=== PATIENT | female | born 1975 | race Caucasian/White ===

== ENCOUNTER 2020-03-23 14:44 | Observation (INO) | payer OTHER, SELFPAY ==
[2020-03-23] VITALS (23 sets, daily range): BP systolic 95–153; BP diastolic 53–76; PULSE 60–81; RESP 14–20; TEMP 36.4–36.7; O2SAT 96–100; BMI 25.7; BMI 25.4; BMI 27.1
--- NOTE | 2020-03-23 14:48 | XR_ITS ---
PROCEDURE: XR TIBIA FIBULA LT 2V CLINICAL INDICATION: pain, thrown from a horse Posttraumatic pain COMPARISON: XR ANKLE LT MIN 3V from 03/23/2020 FINDINGS: There is a transverse fracture involving the base of the medial malleolus. There is medial displacement the fracture fragment by 1 cm. The ankle mortise is widened. There is lateral tilt of the talus. There is a displaced fracture involving the distal shaft of the fibula with 9 mm medial displacement of the distal fracture fragment. There is also 10 mm anterior displacement of that fracture fragment.. On the AP view there is also an additional bony fragment projecting between the distal tibia and fibula. The lateral aspect of the distal tibia is likely the bone of origin. CT may confirm. IMPRESSION: Displaced distal fibular shaft and displaced medial malleolar fracture as described above with an additional fracture noted at the distal tibia laterally indicating a [place] type C ankle fracture with widening of the ankle mortise. Please see above for detail. CT may provide further evaluation Dictated by: Raphael Gomez MD 03/23/2020 15:56 Electronically signed by Raphael Gomez MD in [place] 03/23/2020 15:56
--- NOTE | 2020-03-23 14:49 | PC.NURSE ---
mariia notified of xray orders-spoke with Diallo.
--- NOTE | 2020-03-23 15:18 | PC.NURSE ---
Dr Flower speaking with Dr Keller
--- NOTE | 2020-03-23 15:25 | PC.NURSE ---
Consent signed for conscious sedation at this time
--- NOTE | 2020-03-23 15:29 | PC.NURSE ---
Time out performed per this RN and Dr Flower, CC- EMT and Prerna RN at bedside also
--- NOTE | 2020-03-23 15:42 | PC.NURSE ---
pt has appt with Dr Keller on 03/24/20 @ 1 pm.
--- NOTE | 2020-03-23 15:50 | XR_ITS ---
PROCEDURE: XR ANKLE LT 2V CLINICAL INDICATION: post reduction COMPARISON: No exams were available for comparison FINDINGS: This is 1st attempt at post reduction shows improved but mild persistent lateral displacement of the talus by approximately 1 cm and mild lateral displacement of the medial malleolar fragment by 5 mm. The lateral tibial fragment now poses the bone better. There is some persistent medial displacement of the distal fibular fragment by approximately 1 cm. IMPRESSION: Improvement in alignment and displacement of the distal tib fib fracture as described above Dictated by: Raphael Gomez MD 03/23/2020 16:37 Electronically signed by Raphael Gomez MD in [facility] 03/23/2020 16:37
--- NOTE | 2020-03-23 15:53 | XR_ITS ---
PROCEDURE: XR ANKLE LT 2V CLINICAL INDICATION: post reduction COMPARISON: XR ANKLE LT MIN 3V from 03/23/2020 FINDINGS: Second attempt to post reduction shows medial displacement of the distal fibular fracture. There has been improvement in the lateral subluxation of the talus and lateral talar tilt as well as improvement in the lateral subluxation of the medial malleolar fragment. The lateral tibial fragment is once again noted less displaced as well. IMPRESSION: Second attempt post reduction shows improvement in the alignment of the above mention fractures as well as improvement in the lateral subluxation of the talus. There remains some minimal lateral subluxation of the talus by approximately 5 mm with some persistent lateral subluxation of the medial malleolus Dictated by: Raphael Gomez MD 03/23/2020 16:26 Electronically signed by Raphael Gomez MD in [facility] 03/23/2020 16:26
--- NOTE | 2020-03-23 15:56 | PC.NURSE ---
speaking to Krishna regarding reduction and xray results
--- NOTE | 2020-03-23 16:13 | PC.NURSE ---
Pt tp CT
--- NOTE | 2020-03-23 16:16 | CT_ITS ---
PROCEDURE: CT ANKLE LT WO CON CLINICAL HISTORY: Fall from horse Posttraumatic pain, evaluate ankle fracture COMPARISON: No exams were available for comparison TECHNIQUE: Axial images obtained with sagittal and coronal reformats. All CT scans at the facility use one or more dose reduction, viz: automated exposure control, ma/kV adjustment per patient size (including targeted exams where dose is matched to indication, i.e. head), or iterative reconstruction technique. FINDINGS: The foot and ankle is externally rotated. There is a comminuted displaced distal fibular fracture. The fracture is 9 cm proximal to the distal tip of the fibula. There is 1.3 cm medial and 6 mm anterior displacement of the distal fracture fragment with mild dorsal and lateral angulation of the distal fracture fragment. There is a transverse displaced fracture of the medial malleolus which is displaced laterally by 6 mm. The talus is subluxed laterally by approximately 7 mm with widening of the ankle mortise. There is an oblique fracture through the distal and lateral aspect of the tibia extending into the articular surface. This involves the lateral and posterior aspect of the distal tibia. The talar dome has an unremarkable appearance. There is a thin calcific density along the lateral aspect of the talus which could be due to an avulsion injury best seen on series 3, image 70. From the There is extensive soft tissue swelling medially. There is a posterior splint in place. IMPRESSION: Displaced trimalleolar fracture of the left ankle with widened ankle mortise and mild lateral displacement of the talus as described above. Dictated by: Raphael Gomez MD 03/23/2020 16:47 Electronically signed by Raphael Gomez MD in [place] 03/23/2020 16:47
--- NOTE | 2020-03-23 16:27 | PC.NURSE ---
Pt returned from rad.
--- NOTE | 2020-03-23 16:33 | PC.NURSE ---
Dr Keller at bedside
--- NOTE | 2020-03-23 16:40 | PC.NURSE ---
Dr Keller decided to do another reduction at bedside, 100mg propofol given pr Dr Flower see fahad, called rad at this time to performed post reduction film
--- NOTE | 2020-03-23 16:53 | XR_ITS ---
PROCEDURE: XR ANKLE LT 2V CLINICAL INDICATION: post reduction COMPARISON: XR ANKLE LT MIN 3V from 03/23/2020 XR ANKLE LT 2V from 03/23/2020 FINDINGS: A cast have been has been placed. There is improved alignment of the medial malleolar fracture. The ankle mortise no longer appears widened. There is some minimal anterior subluxation of the talus. There remains medial displacement of the distal fibular fracture. IMPRESSION: Improved alignment of the medial malleolar fracture and lateral talus displacement Dictated by: Raphael Gomez MD 03/23/2020 17:15 Electronically signed by Raphael Gomez MD in [facility] 03/23/2020 17:15
--- NOTE | 2020-03-23 17:01 | PC.NURSE ---
Rad at bedside
--- NOTE | 2020-03-23 17:06 | PC.NURSE ---
Given updated at this time
--- NOTE | 2020-03-23 17:06 | PC.NURSE ---
Pt awake and oriented and RASS score of 2, stated her leg is sore but tolerable
--- NOTE | 2020-03-23 17:08 | HMH.EDLOEX ---
ED Disposition Clinical Impression: Ankle fracture, Fibula fracture, Avulsion fracture of ankle, Intractable pain Disposition: Admitted as Observation Condition on Discharge: Good Prescriptions: Hydrocodone/Acetaminophen [Hydrocodone-Acetamin 10-325 mg] 1 each PO Q4H 3 Days #15 tab Prescription Printed Nabumetone 750 mg PO BID 10 Days #20 tab Prescription Printed Referrals: Provider,Referral, [Primary Care Provider] - - Critical Care Critical Care Time: No Attestation: On 03/23/20, the high probability of a clinically significant, sudden or life threatening deterioration of the following system(s) required my full and direct attention, intervention and personal management. The time I documented below is in addition to time spent performing reported procedures but includes the following listed in this critical care notation. Medical Decision Making - Medical Records Medical records reviewed: Yes: I reviewed the patient's medical records. - Vladislav Inquiry Pt receiving controlled substance: No Vital Signs: 03/23/20 14:44 03/23/20 15:07 03/23/20 15:21 Temperature 98 F Temperature Source Oral Pulse Rate [Right] 78 66 75 Respiratory Rate 20 Blood Pressure [Right Arm] 103/64 L 153/66 H 108/72 L Blood Pressure Mean [Right Arm] 77 95 84 Blood Pressure Source [Right Arm] Automatic Cuff Automatic Cuff Blood Pressure Position [Right Arm] Supine Supine 02 Sat by Pulse Oximetry 100 100 100 Oxygen Delivery Method Room Air Room Air Oxygen Flow Rate (LPM) 03/23/20 15:30 03/23/20 15:35 03/23/20 15:40 Temperature 98 F Temperature Source Oral Pulse Rate [Right] 72 70 75 Respiratory Rate 18 18 14 Blood Pressure [Right Arm] 108/60 L 108/76 L 95/56 L Blood Pressure Mean [Right Arm] 76 86 69 Blood Pressure Source [Right Arm] Blood Pressure Position [Right Arm] 02 Sat by Pulse Oximetry 100 100 100 Oxygen Delivery Method Nasal Cannula Nasal Cannula Nasal Cannula Oxygen Flow Rate (LPM) 2 2 2 03/23/20 15:45 03/23/20 15:50 03/23/20 16:00 Temperature Temperature Source Pulse Rate [Right] 71 71 81 Respiratory Rate 14 16 15 Blood Pressure [Right Arm] 97/57 L 101/64 L 109/72 L Blood Pressure Mean [Right Arm] 70 76 84 Blood Pressure Source [Right Arm] Blood Pressure Position [Right Arm] 02 Sat by Pulse Oximetry 100 99 98 Oxygen Delivery Method Nasal Cannula Nasal Cannula Nasal Cannula Oxygen Flow Rate (LPM) 2 2 2 03/23/20 16:05 03/23/20 16:30 03/23/20 16:40 Temperature Temperature Source Pulse Rate [Right] 75 65 66 Respiratory Rate 15 15 Blood Pressure [Right Arm] 106/70 L 97/55 L 121/57 L Blood Pressure Mean [Right Arm] 82 69 78 Blood Pressure Source [Right Arm] Automatic Cuff Blood Pressure Position [Right Arm] Supine 02 Sat by Pulse Oximetry 100 100 100 Oxygen Delivery Method Nasal Cannula Nasal Cannula Oxygen Flow Rate (LPM) 2 2 03/23/20 16:45 03/23/20 16:50 03/23/20 17:00 Temperature Temperature Source Pulse Rate [Right] 72 62 72 Respiratory Rate 18 15 18 Blood Pressure [Right Arm] 121/56 L 106/64 L 110/72 Blood Pressure Mean [Right Arm] 77 78 84 Blood Pressure Source [Right Arm] Blood Pressure Position [Right Arm] 02 Sat by Pulse Oximetry 100 100 100 Oxygen Delivery Method Nasal Cannula Nasal Cannula Oxygen Flow Rate (LPM) 2 03/23/20 17:02 03/23/20 17:05 03/23/20 17:30 Temperature Temperature Source Pulse Rate [Right] 72 77 64 Respiratory Rate 18 Blood Pressure [Right Arm] 110/72 103/67 L 108/62 L Blood Pressure Mean [Right Arm] 84 79 77 Blood Pressure Source [Right Arm] Automatic Cuff Automatic Cuff Blood Pressure Position [Right Arm] Sitting Supine 02 Sat by Pulse Oximetry 100 100 100 Oxygen Delivery Method Nasal Cannula Nasal Cannula Nasal Cannula Oxygen Flow Rate (LPM) 2 2 2 - Lab Data Lab results reviewed: Yes: I reviewed the patient's lab results. Orders (Tests/Meds): ED MEDICATIONS Discontinued M
--- NOTE | 2020-03-23 17:22 | PC.NURSE ---
dr. johnson who is client relations specialist for service paged per brake operator helper per ER request
--- NOTE | 2020-03-23 17:35 | PC.NURSE ---
dr nelson talking to dr johnson
--- NOTE | 2020-03-23 17:35 | PC.NURSE ---
SALLY HASSAN speaking with Dr. Corona who is electronics lead for Dr. Houston joshi MD for this month.
--- NOTE | 2020-03-23 17:38 | PC.NURSE ---
contacted [facility] for bed assignment, waiting trial consultant back
--- NOTE | 2020-03-23 17:40 | PC.NURSE ---
Pt to remain in the ED until covid test comes back before moving her to Med Surg Floor.
--- NOTE | 2020-03-23 18:06 | PC.NURSE ---
LAB AT BEDSIDE
[2020-03-23 18:16] LABS: Adenovirus,PCR Not Detected (NotDetected); Bordetella Pertussis Not Detected (NotDetected); Chlamydophila Pneumoniae, PCR Not Detected (NotDetected); Coronavirus 19, PCR Not Detected (NotDetected); Coronavirus 229E Not Detected (NotDetected); Coronavirus NL63 Not Detected (NotDetected); Coronavirus OC43 Not Detected (NotDetected); Coronovirus HKU1,PCR Not Detected (NotDetected); Human Metapneumovirus Not Detected (NotDetected); Influenza A, PCR Not Detected (NotDetected); Influenza AH1, 2009 Not Detected (NotDetected); Influenza AH1, PCR Not Detected (NotDetected); Influenza AH3,PCR Not Detected (NotDetected); Influenza B, PCR Not Detected (NotDetected); Mycoplasma Pneumoniae, PCR Not Detected (NotDected); Parainfluenza 1, PCR Not Detected (NotDetected); Parainfluenza 2, PCR Not Detected (NotDetected); Parainfluenza 3, PCR Not Detected (NotDetected); Parainfluenza 4, PCR Not Detected (NotDetected); Respiratory Syncytial Virus Not Detected (NotDetected); Rhinovirus/Enterovirus Not Detected (NotDetected)
[2020-03-23 18:22] LABS: Basophils % 0.2 % (0.1-2.0); Eosinophils % 0.2 % (0.1-12.0); Hematocrit 35.1 % (37.0-47.0); Hemoglobin 11.7 g/dL (12.2-16.2); Lymphocytes # 1.6 K/mm3 (0.7-4.5); Lymphocytes % 11.6 % (10-50); Mean Corpuscular HGB Conc 33.4 g/dL (31.8-35.4); Mean Corpuscular Hemoglobin 30.4 pg (27.0-31.2); Mean Corpuscular Volume 91.2 fl (81-99); Mean Platelet Volume 7.7 fl (7.4-10.4); Monocytes # 0.7 K/mm3 (0.1-1.0); Monocytes % 4.8 % (1.7-9.3); Neutrophils # 11.8 K/mm3 (1.8-7.8); Neutrophils % 83.2 % (37.0-80.0); Platelet Count 302 K/mm3 (142-424); Red Blood Count 3.84 M/mm3 (4.20-5.40); Red Cell Distribution Width 13.1 % (11.5-17.5); White Blood Count 14.1 K/mm3 (4.8-10.8)
[2020-03-23 18:28] LABS: Alanine Aminotransferase 10 U/L (12-78); Albumin/Globulin Ratio 1.5 (1.1-1.8); Alkaline Phosphatase 47 U/L (38-126); Anion Gap 8.7 mEq/L (5-15); Aspartate Amino Transferase 23 U/L (14-36); Bilirubin,Total 0.2 mg/dl (0.2-1.3); Blood Urea Nitrogen 17 mg/dl (7-17); Calcium 8.4 mg/dl (8.4-10.2); Carbon Dioxide 24 mmol/L (22.0-30.0); Chloride 106 mmol/L (98-107); Creatinine Clearance Estimated 105 mL/min (50-200); Estimated Glomerular Filt Rate 90 ml/min (>60); GFR (African American) 109 ML/MIN (>60); Globulin 2.6 g/dL (1.3-3.2); Glucose 109 mg/dl (74-100); Potassium 3.7 mmoL/L (3.5-5.1); Sodium 135 mmol/L (136-145); Total Protein,Serum 6.6 g/dl (6.3-8.2)
--- NOTE | 2020-03-23 18:44 | PC.NURSE ---
Spoke with Dr. Shukla and she wants to add patient on for surgery at 0730 03/24. Wang Arevalo RN notified Yadira Guevara, mental health program manager. SUMIT Lynn notified Jocelyne Mark to informed her that supplies would need to be sterilized prior to surgery and that Rep. would be bringing them in tonight. 1851: Wang Arevalo RN spoke with Keila Khan RN to notify her of surgery in and Patricia Adams, it support technician.
--- NOTE | 2020-03-23 18:53 | PC.NURSE ---
Pt awaiting on COVID19 test before being admitted to 2nd floor
--- NOTE | 2020-03-23 19:00 | PC.NURSE ---
Spoke with Sotero Escobedo CRNA and notified him of surgery in AM.
--- NOTE | 2020-03-23 19:08 | PC.NURSE ---
report given to len
--- NOTE | 2020-03-23 21:01 | PC.NURSE ---
PT ARRIVED TO THE FLOOR VIA STRETCHER FROM ED @ 2100.
--- NOTE | 2020-03-23 21:04 | HMH.ORTHOCON ---
*Admission Date: 03/23/20 *Reason for consult:: Left trimalleolar ankle fracture dislocation *History of present illness: Mrs. Hubbard is a 45-year-old female who presented to the ED today 03/23/2020 after sustaining a fall off of a horse around 2 PM. Patient was seen and evaluated by ED doctor and orthopedic surgeon Dr. Keller was consulted for closed reduction of left trimalleolar ankle fracture dislocation. Dr. Corona admitted the patient for pain control and I was consulted for surgical evaluation. Of note: Patient's was positive for COVID and has been self isolating at their home. Patient has little to no help at home hence the admission for stabilization prior to discharge home. At the ER bedside patient reports pain controlled with medication. She has nausea and is actively vomiting secondary to sedation medication. Review of Systems - Review of Systems Review of systems:: pertinent systems reviewed and negative unless documented below - Constitutional Reports fatigue - Eyes Denies blind spots, Denies blurry vision - ENT Denies abnormal hearing - *Cardiovascular Denies chest pain, Denies shortness of breath - *Respiratory Denies chest congestion, Denies shortness of breath - *Gastrointestinal Reports nausea, Reports vomiting - *Genitourinary Denies abnormal periods - *Musculoskeletal Reports deformity, Reports limited joint movement, Reports radiating pain into limb - *Neurologic Denies abnormal hearing - Psychiatric Denies abnormal sleep pattern - Endocrine Reports cold intolerance - Hematologic/Lymphatic Reports easy bruising - Allergic/Immunologic Reports GI upset with certain foods [facility] [place] History I have reviewed the patient's past medical history: Yes Medical History: Denies:: Diabetes Mellitus Type 2, Hypertension *Have you ever received a pneumonia vaccine?: No *Have you received a flu vaccine this season?: Yes Other Surgeries: Yes: Other (Cystoscopy) Amputation: No - *Social History Smoking Status: Never smoker Alcohol Intake: never *Occupational Status:: employed *Travel in the last 8 weeks: None Family Hx:: Hypertension Meds Home Medications Medication Instructions Recorded Confirmed Type Fluticasone Furoate [Flonase 1 spray NS NEEDED PRN 03/24/20 03/24/20 History Sensimist] Ibuprofen [Ibuprofen 800mg 800 mg PO Q8HP PRN 03/24/20 03/24/20 History Tablet] Allergies Allergy/AdvReac Type Severity Reaction Status Date / Time hydromorphone [From Abdoulid] Allergy Nausea Verified 03/24/20 07:15 Exam Vital signs and Labs for Last 24 Hours: Temp Pulse Resp BP Pulse Ox 98.0 F 64 14 105/64 L 96 03/23/20 20:55 03/23/20 20:55 03/23/20 20:55 03/23/20 20:55 03/23/20 18:41 Laboratory Results - last 24 hr 03/23/20 18:10: Chlamy pneumoniae PCR Not detected, Adenovirus (PCR) Not detected, B. pertussis DNA (PCR) Not detected, Coronavirus OC43 (PCR) Not detected, Coronavirus HKU1 (PCR) Not detected, Coronavirus 229E (PCR) Not detected, COVID-19 PCR Not detected, Coronavirus NL63 (PCR) Not detected, Human Metapneumovir PCR Not detected, Influenza A (H1) PCR Not detected, Influ A (H1N1/09) PCR Not detected, Influenza A (H3) PCR Not detected, Influenza Type A (PCR) Not detected, Influenza Type B (PCR) Not detected, M. pneumoniae (PCR) Not detected, Parainfluenza 1 (PCR) Not detected, Parainfluenza 2 (PCR) Not detected, Parainfluenza 3 (PCR) Not detected, Parainfluenza 4 (PCR) Not detected, RSV (PCR) Not detected, Entero/Rhino (PCR) Not detected 03/23/20 18:10: WBC 14.1 H, RBC 3.84 L, Hgb 11.7 L, Hct 35.1 L, MCV 91.2, MCH 30.4, MCHC 33.4, RDW 13.1, Plt Count 302, MPV 7.7, Neut % (Auto) 83.2 H, Lymph % (Auto) 11.6, [place] % (Auto) 4.8, Eos % (Auto) 0.2, Baso % (Auto) 0.2, Neut # (Auto) 11.8 H, Lymph # (Auto) 1.6, [place] # (Auto) 0.7, Eos # (Auto) 0.0, Baso # (Auto) 0.0 03/23/20 18:10: Sodium 135 L, Potassium 3.7, Chloride 106, Carbon Dioxide 24, Anion Gap
[2020-03-24] VITALS (27 sets, daily range): BP systolic 87–124; BP diastolic 25–85; PULSE 60–106; RESP 16–20; TEMP 36.5–43; O2SAT 92–100; BMI 27.1
[2020-03-24 00:06] LABS: Microscopic, Urine URINE MICROSCOPIC (MICROSCOPIC)
[2020-03-24 00:27] LABS: Appearance,Urine CLEAR (Clear); Bilirubin,Urine Negative (Negative); Blood, Urine Negative (Negative); Color,Urine YELLOW (Yellow); Glucose,Urine (UA) Negative (Negative); Ketones,Urine 2+ (Negative); Leukocyte Esterase,Urine Negative (Negative); Nitrate,Urine Negative (Negative); Protein,Urine Negative (Negative); Specific Gravity, Urine 1.025 (1.005-1.030); Urobilinogen,Urine 0.2 EU/dl (0.2)
[2020-03-24 00:33] LABS: Bacteria,Urine 1+ /lpf; Mucus,Urine 1+ /lpf
--- NOTE | 2020-03-24 05:51 | ECG_ITS ---
APPROVED REPORT Exam: Resting ECG HR:63 bpm ECG Measurements Heart Rate 63 AXES OK 144 P 39 QRSd 112 QRS 62 QT 396 T 43 QTc 405 <Conclusion> Normal sinus rhythm Incomplete right bundle branch block Borderline ECG Electronically signed by : Karl Garcia, 03/24/2020 08:50:19
--- NOTE | 2020-03-24 06:06 | XR_ITS ---
PROCEDURE: XR CHEST PORTABLE CLINICAL HISTORY: pre-op Exposure to COVID 19 COMPARISON: No exams were available for comparison FINDINGS: The cardiomediastinal silhouette and pulmonary vascularity are within normal limits. The lungs are clear without infiltrates, suspicious nodules, or pleural effusions. No acute bony abnormalities. IMPRESSION: No acute findings. Dictated by: Raphael Gomez MD 03/24/2020 06:28 Electronically signed by Raphael Gomez MD in [place] 03/24/2020 06:28
--- NOTE | 2020-03-24 07:12 | P.CONPHA_ITS ---
[facility] Pharmacy VTE Monitoring - Patient Demographics Admission date: 03/23/20 Report Date: 03/24/20 Time: 07:12 Allergies/Adverse Reactions: Patient Allergies No Known Allergies Allergy (Verified 03/23/20 14:48) Height: 1.63 m Weight: 72.2 kg Patient Problems: Current Active Problems Ankle fracture (Acute) Fibula fracture (Acute) Avulsion fracture of ankle (Acute) Intractable pain (Acute) Trimalleolar fracture of left ankle (Acute) Soft tissue injury of left ankle (Acute) Left ankle pain (Acute) - VTE Risk Labs: VTE Related Lab Results Hgb 11.7 g/dL (12.2-16.2) L 03/23/20 18:10 Hct 35.1 % (37.0-47.0) L 03/23/20 18:10 Plt Count 302 K/mm3 (142-424) 03/23/20 18:10 BUN 17 mg/dl (7-17) 03/23/20 18:10 Creatinine 0.70 mg/dl (0.52-1.04) 03/23/20 18:10 Estimated Creat Clear 105 mL/min (50-200) 03/23/20 18:10 Was VTE Risk Assessment Performed: Yes VTE Score: 1 VTE Risk Level: Very Low Risk Clinical Trial Participant: No - Prophylaxis VTE Prophylaxis Ordered?: Yes Types of VTE Prophylaxis: TEDS Knee High
--- NOTE | 2020-03-24 07:15 | HMH.ANESCL ---
[facility] Anesthesia Checklist - Patient Identification Patient Identification: Arm Band, Verbal (Name & ) - Structural Data Admitted From: Home Planned Operative Procedure/s: orif ankle Consent for Planned Operative Procedure(s) Verified: Yes Verified Documents: History and Physical - NPO Status Verified Time NPO: 00:00 - Additional verifications Patient : No Anesthesia Reactions: No Hx Blood Transfusions: No Blood Transfusion Reaction: No Cephalosporin Allergy: No Previous Colonoscopy: No - Cardiovascular Assessment Heart Sounds: S1 & S2 Pulse Strength: Baseline Pulse Rhythm: Regular Peripheral Edema: Yes - Airway Assessment C-Spine Mobility Assessed: No TMJ Mobility Assessed: No Dentition: Good Dentition - Neurological Assessment Level of Consciousness: Awake, Alert, Appropriate Hx Seizures: No Numbness or tingling in extremities: No - Anesthesia Plan Anesthesia Risk discussed: Yes Anesthesia Plan: Verified ASA Class: I Anesthesia Type: General [facility] History I have reviewed the patient's past medical history: Yes Medical History: Denies:: Cancer, Diabetes Mellitus Type 1, Diabetes Mellitus Type 2, Internal Pacemaker, MRSA *Have you ever received a pneumonia vaccine?: No (pt unable to respond) *Have you received a flu vaccine this season?: Yes (pt unable to respond) Anesthesia experience/problems:: none Other Surgeries: No: Pacemaker Amputation: No - *Social History Educational Level: Completed Graduate School Alcohol Intake: never Substance Use Type: other *Occupational Status:: employed Housing: house Household Members: spouse, children *Travel in the last 8 weeks: None Family Hx:: Diabetes, Heart Attack, Hypertension
--- NOTE | 2020-03-24 07:16 | HMH.OPNOTE ---
Date of procedure: 03/24/20 Pre-op Diagnosis:: 1. Left trimalleolar ankle fracture dislocation 2. Left ankle edema 3. Left ankle pain 4. Left ankle injury, fall from horse Post-op Diagnosis:: Same Procedure performed:: 1. Left open reduction internal fixation trimalleolar ankle fracture (ORIF distal fibula, ORIF medial malleolus) 2. Left ORIF syndesmosis 3. Left ankle synovectomy 4. Left application of amniotic graft 5. Left application of posterior splint Surgeon:: Negra Shukla DPM DRIVER RECRUITER:: Prashanth Raman Anesthesia: GETA, regional (left popliteal, saph nerve block) Estimated blood loss (mL): 20 Clinical Note:: Left Trimalleolar Ankle Fracture Pre-op: X-rays evaluated by myself. 3 views of left ankle as well as postreduction films and CT left ankle evaluated by myself. Report noted. CT Findings: The foot and ankle is externally rotated. There is comminuted displaced distal fibular fracture. The fracture is 9 cm proximal to the tip of the distal fibula. There is 1.3 cm medial and 6 mm anterior displacement of the distal fibular fracture fragment with mild dorsal and lateral angulation of the distal fibular fracture fragment. There is a transverse displaced fracture of the medial malleolus which is displaced laterally by 6 mm. The talus is subluxed laterally by approximately 7 mm with widening of the ankle mortise. There is an oblique fracture through the distal and lateral aspect of the tibia extending into the articular surface. This involves the lateral and posterior aspect of the distal tibia. The talar dome has an unremarkable appearance. There is a thin calcific density along the lateral aspect of the talus which could be due to an avulsion injury best seen on series 3, image 70. There is extensive soft tissue swelling medially. There is a posterior splint in place. Impression: Displaced trimalleolar fracture of the left ankle with widened ankle mortise. X-rays ad CT reviewed and discussed with the patient and patient's sister Susi. Images show fracture dislocation with fracture of the medial malleolus as well as distal fibula with significant gapping and comminution. Lateral dislocation of the talus. Conservative treatment discussed but not recommended. DOI: 03/23/2020. We discussed surgery due to the highly unstable nature of the fracture. I explained if the soft tissue has fracture blisters or swelling, the left lower extremity will need to be stabilized with an external fixation device. If the swelling is minimal, can proceed with ORIF tomorrow morning. All risks and benefits were discussed including but not limited to: damage to blood vessels and nerves, bleeding, infection, wound complications, delayed, mal or non-union of bone, post-traumatic arthritis, need for further surgery, need for removal of implant, prolonged swelling of the extremity, prolonged pain, CRPS/RSD, DVT, and anesthetic complications. No guarantees were given. All questions fully answered. The patient and patient's sister verbalized understanding and agreed to proceed with surgery. Consent was obtained. Necessary labs and pre-op testing ordered: CBC, BMP, EKG, CXR. Admission per Dr. Corona. WBC elevated, Dr. Corona aware. Med clearance per Dr. Corona. Of note: COVID 19 test negative. Operative findings:: Left ankle with obvious deformity noted upon removal of splint. 2 small blisters inferior to the medial malleolus incision less than dime sized around. Some ecchymosis and mild edema. Comminuted left distal fibula fracture with 2 main fracture fragments and several small pieces in between the 2 main fracture fragments. Medial malleolus fracture with 2 small fracture fragments that were removed. The ankle joint was visualized and there was hematoma at the medial malleolus as well as in the ankle joint. Medial talar dome had a scuff in the cartilage. Synovitis to ankle could be from trauma or due to patient's activity and history of running. Operative note::
[2020-03-24 07:37] LABS: Urine Pregnancy, HCG Qual. Negative (Negative)
--- NOTE | 2020-03-24 07:45 | PC.NURSE ---
PT DID WELL OVERNIGHT. RATES PAIN OF LEFT ANKLE A 3/10 T/O SHIFT ON PAIN SCALE, WHICH WAS NOTED A TOLERABLE LEVEL FOR HER. PT NOTED VERY NAUSEOUS FROM RECEIVING DILAUDID X2 IN THE ER PRIOR TO ADMISSION. PT CONTINUED WITH NAUSEA AND VOMITING UPON ARRIVAL TO UNIT. ADMINISTERED PHENERGAN PER MAR, PT STATES NO REMAINING SYMPTOMS. RESTED WELL THE REMAINDER OF THE SHIFT WITH NO NEW COMPLAINTS. LLE ELEVATED WITH POLAR PACK TO KNEE. TEDS ON RLE. VSS. WEANED PT TO RA, O2 SATS WNL. REMAINS SAFE. CALL LIGHT WITHIN REACH. WILL CONTINUE TO MONITOR.
--- NOTE | 2020-03-24 07:54 | SUR.PREOP ---
Terrell from pharmacy called to update that Pt has had Ancef yesterday evening and 0430 this AM. Spoke with Dr. Shukla, cancel pre-op Ancef order.
--- NOTE | 2020-03-24 10:51 | XR_ITS ---
PROCEDURE: XR ANKLE LT 2V CLINICAL INDICATION: ORIF LT ANKLE COMPARISON: XR ANKLE LT 2V from 03/23/2020 FINDINGS: Fluoroscopic spot films in surgery show placement of a long metallic plate transfixing the transverse fibular flexure in anatomic alignment. The plate is fixated by multiple threaded screws. A 2nd shorter metallic plate is seen along the medial aspect of the distal tibia fixating an reducing the medial malleolar fracture in anatomic alignment. And oblique threaded screw is seen within the medial malleolus and distal tibia as well. The overall ankle mortise appears normal. IMPRESSION: Satisfactory ORIF distal fibular and medial malleolar fracture Dictated by: Dr. Syd Tan MD 03/24/2020 11:[address] Syd Tan MD in [place] 03/24/2020 11:29
--- NOTE | 2020-03-24 10:55 | SUR.OPER ---
1036-family updated at this time
--- NOTE | 2020-03-24 11:17 | XR_ITS ---
PROCEDURE: XR ANKLE LT MIN 3V CLINICAL INDICATION: s/p ORIF left ankle COMPARISON: Fluoroscopic spot films in surgery same date and plain films left ankle 03/24/2020 FINDINGS: AP lateral and oblique films were obtained post casting. The long metallic fibular plate is again noted transfixing the fibular fracture in anatomic alignment. The metallic plate is again seen no medial border of the distal tibia along with a parallel 3 threaded screw transfixing the medial malleolar fracture in anatomic alignment. The ankle mortise appears grossly normal. IMPRESSION: Satisfactory ORIF distal fibular and medial malleolar fracture post casting Dictated by: Dr. Syd Tan MD 03/24/2020 12:[address] Syd Tan MD in [place] 03/24/2020 12:48
--- NOTE | 2020-03-24 11:44 | P.PN_ITS ---
[facility] Anesthesia Record Part I Intake, IV Amount: 1,300 Estimated blood loss (mL): 0 Urine output (mL): 1,100 Blood Products used (#): none Blood Pressure: 113/60 SaO2: 92 Pulse Rate: 80 Respiratory Rate: 18 Temperature: 98.4 F Patient is:: Drowsy, Nasal O2, Stable Stable to PACU at:: 11:41
--- NOTE | 2020-03-24 12:57 | HMH.ANESII ---
[facility] Anesthesia Record Part II Discharge Time: 12:11 Destination: Medical Surgical Department PACU nurse assessment reviewed?: Yes Patient Condition:: Good Anesthesia Complications:: None Swallowing reflex intact?: Yes Cyanosis?: No Blood Pressure: 124/67 Pulse Rate: 76 Temperature: 98.1 F Mental Status: Alert & Oriented Pain level:: 4 Nausea and/or vomitting:: None Intake, IV Amount: 20
--- NOTE | 2020-03-24 13:01 | PC.NURSE ---
1209-pt reports pain still remains about 4-5/10 on numeric pain scale to behind left knee, pt was medicated per MAR with Toradol 30mg IM. Offered pt additional pain medication as ordered per DIRECTOR OF RESEARCH AND DEVELOPMENT, pt refused pain medication at this time r/t pain meds causing severe nausea. Offered pt Phenergan as ordered per DIRECTOR OF RESEARCH AND DEVELOPMENT/MAR to prevent nausea with pain medication. Pt reported she did not want either at this time and would take PO pain medication as ordered per MAR once she returns to her room on med/surg. Pt reported pain was tolerable and not worsening. 1211-attempted to call report at this time, awaiting 2nd floor RN to call back for report. 1216-detailed report given to SUMIT Mcduffie on 2nd floor 1221-pt transported to 2nd floor room 203 via hospital bed with mita rails up per SUMIT Omer and SUMIT Baker and left in care of SUMIT Mcduffie with bed locked in lowest position, vss, family at bedside, pt stable
--- NOTE | 2020-03-24 13:05 | PC.NURSE ---
late entry: 1149-radiology at bedside
[2020-03-24 13:49] LABS: Microscopic,Cath URINE MICROSCOPIC (MICROSCOPIC)
[2020-03-24 14:12] LABS: Appearance,Urine/Cath CLEAR (Clear); Bilirubin,Cath Negative (Negative); Blood, Urine/Cath Negative (Negative); Color,Urine/Cath YELLOW (Yellow); Glucose,Urine/Cath (UA) Negative (Negative); Ketones,Urine/Cath Negative (Negative); Leukocyte Esterase,Cath Negative (Negative); Nitrate,Cath Negative (Negative); PH,Urine/Cath 6.5 (5.0-8.5); Protein,Urine/Cath Negative (Negative); Urobilinogen,Cath 0.2 EU/dl (0.2)
[2020-03-24 14:55] LABS: Squamous Epithelial Ur./Cath Occasional #/hpf (0-5); WBC,Urine/Cath Occasional #/hpf (0-3)
--- NOTE | 2020-03-24 15:03 | HMH.HP ---
*Admission Date: 03/23/20 <Adwoa Ward 03/24/20 16:03> *Chief complaint: left ankle injury when falling off a horse <Adwoa Ward 03/24/20 16:03> *History of present illness: Mrs. Hubbard is a 45-year-old healthy female who presented to the ED 03/23/2020 after sustaining a fall off of a bucking horse around 2 PM. She states she landed on her feet and immediately knew that she had an injury. She had no loss of consciousness. She states she had to crawl a long distance for help. Patient was seen and evaluated by ED doctor. Orthopedic surgeon, Dr. Keller, was consulted for closed reduction of left trimalleolar ankle fracture dislocation. Dr. Corona admitted the patient for pain control. Dr. Shukla was consulted for surgical evaluation. Of note: Patient's was positive for COVID and has been self isolating at their home. Patient has little to no help at home. Hence the admission for stabilization prior to discharge home. At the ER bedside patient reported pain control with medication. She had nausea and actively vomited secondary to sedation medication. At the time of this assessment patient has already had ORIF of the distal fibula; ORIF of medial malleolus, left ORIF syndesmosis, left ankle synovectomy, application of amniotic graft and left application of posterior splint by Dr. Shukla. Patient at this time is comfortable and visiting with a friend. <Adwoa Ward 03/24/20 16:03> [facility] [place] History Medical History: Reports:: Gastroesophageal Reflux Disease(GERD) (H pylorie years ago) Denies:: Cancer, Diabetes Mellitus Type 1, Diabetes Mellitus Type 2, Hypertension, Internal Pacemaker, Lung Disease, Migraine, MRSA, Seizures <Adwoa Ward 03/24/20 16:03> *Have you ever received a pneumonia vaccine?: No (pt unable to respond) <Adwoa Ward 03/24/20 16:03> *Have you received a flu vaccine this season?: Yes (pt unable to respond) <Adwoa Ward 03/24/20 16:03> Other Medical History: Reports: Anemia. Denies: Blood Transfusion Reaction, Hypothyroidism <Adwoa Ward 03/24/20 16:03> Anesthesia experience/problems:: none <Adwoa Ward 03/24/20 16:03> Other Surgeries: Yes: Other (Cystoscopy; urethral dilatation about every 5 to 6 years). No: Pacemaker <Danya Wardhy 03/24/20 16:03> Amputation: No <Adwoa Ward 03/24/20 16:03> - *Social History Educational Level: Completed Graduate School <Adwoa Ward 03/24/20 16:03> Smoking Status: Never smoker <Adwoa Ward 03/24/20 16:03> Alcohol Intake: never <Adwoa Ward 03/24/20 16:03> Substance Use Type: other [facility] 03/24/20 16:03> *Occupational Status:: employed <Adwoa Ward 03/24/20 16:03> Housing: house <Danya Wardhy 03/24/20 16:03> Household Members: spouse, children <Danya Wardhy 03/24/20 16:03> *Travel in the last 8 weeks: None <[facility] 03/24/20 16:03> Family Hx:: Cancer, Coronary Artery Disease, Heart Attack, Hypertension <Danya Wardhy 03/24/20 16:03> Comment: Sister had glioblastoma; mother and father both had skin melanomas <Danya Wardhy 03/24/20 16:03> Comment: Has IUD <Danya Wardhy 03/24/20 16:03> Review of Systems - Constitutional Denies chills, Denies fever(s), Denies lack of energy <Adwoa Wrad 03/24/20 16:03> - Eyes Denies change in vision <[facility] 03/24/20 16:03> - ENT Reports post nasal drip, Reports sore throat (In the a.m.), Denies dizziness, Denies ear pain, Denies nose pain <Danya Wardhy 03/24/20 16:03> - *Cardiovascular Denies chest pain, Denies shortness of breath, Denies irregular heart rhythm <Danya Wardhy 03/24/20 16:03> - *Respiratory Denies chest congestion, Denies cough, Denies shortness of breath, Denies coughing up blood <Adwoa Ward 03/24/20 16:03> - *Gastrointestinal Reports heartburn (Occasional), Denies abdominal pain, Denies coffee ground vomit, Denies constipation <Adwoa Ward 03/24/20 16:03> - *Genitourinary Repo
--- NOTE | 2020-03-24 19:13 | PC.NURSE ---
report given to len
--- NOTE | 2020-03-24 20:08 | PC.NURSE ---
Pt has been alert and oriented x 4 and able to make needs known. Has done well post op. VSS. Polor pack in place to L knee, scud in place to R leg. Pain has been minimal, have medicated x 2 with prn po med. Dsg cdi to Left leg. CB in reach. NAD, continues to be NSR and on RA. Have given report to oncoming RN.
[2020-03-25] VITALS: PULSE 70
[2020-03-25 00:31] VITALS: BP 90/74; PULSE 86; RESP 19; TEMP 36.8; O2SAT 94
--- NOTE | 2020-03-25 03:46 | PC.NURSE ---
PT RESTED WELL WITH EYES CLOSED T/O SHIFT. C/O MILD PAIN T/O SHIFT, RATING PAIN 4/10 ON PAIN SCALE. ADMINISTERED NORCO X2 PER MAR PER PT REQUEST. UPON REASSESSMENT PT NOTED RESTING WITH EYES CLOSED. NO FURTHER C/O PAIN THUS FAR. LLE REMAINS ELEVATED ON PILLOWS WHILE IN BED. POLAR PACK REMAINS BEHIND LEFT KNEE. PT ABLE TO MOVE DIGITS APPROPRIATELY ON LLE. PT TOLERATED NWB DURING TRANSFER TO SHOWER CHAIR AND DURING SHOWER THIS SHIFT. TOLERATED RA WELL WITH NO C/O SOA. BILATERAL LUNG NOTED CLEAR T/O UPON AUSCULTATION. PT DEMONSTRATED APPROPRIATE USE OF INCENTIVE SPIROMETER THIS SHIFT. ENCOURAGED USE OF IS WHILE AWAKE. SCUDS REMAINS ON RLE. NSR ON PERSONAL TRAINER. VSS. PT STATES HER BASELINE B/P IS USUALLY 80/65 RANGE. MAP REMAINS >65 T/O SHIFT. REMAINS SAFE. FC SITE REMAINS C/D/I. URINE NOTED CLEAR AND BRIGHT YELLOW. ADEQUATE URINE OUTPUT NOTED. CALL LIGHT WITHIN REACH. WILL CONTINUE TO MONITOR.
[2020-03-25 03:51] VITALS: BP 100/70; PULSE 70; RESP 19; TEMP 36.8; O2SAT 97
[2020-03-25 04:00] VITALS: PULSE 60
[2020-03-25 05:00] VITALS: BMI 27.3
[2020-03-25 07:06] LABS: Basophils % 0.3 % (0.1-2.0); Eosinophils # 0.1 K/mm3 (0.0-0.4); Eosinophils % 0.6 % (0.1-12.0); Hematocrit 31.8 % (37.0-47.0); Hemoglobin 9.8 g/dL (12.2-16.2); Lymphocytes # 2.3 K/mm3 (0.7-4.5); Lymphocytes % 24.5 % (10-50); Mean Corpuscular HGB Conc 30.9 g/dL (31.8-35.4); Mean Corpuscular Hemoglobin 30.2 pg (27.0-31.2); Mean Corpuscular Volume 97.9 fl (81-99); Monocytes # 0.7 K/mm3 (0.1-1.0); Monocytes % 7.1 % (1.7-9.3); Neutrophils # 6.3 K/mm3 (1.8-7.8); Neutrophils % 67.5 % (37.0-80.0); Platelet Count 221 K/mm3 (142-424); Red Blood Count 3.25 M/mm3 (4.20-5.40); Red Cell Distribution Width 13.4 % (11.5-17.5); White Blood Count 9.4 K/mm3 (4.8-10.8)
[2020-03-25 07:14] LABS: Chloride 108 mmol/L (98-107); Potassium 3.3 mmoL/L (3.5-5.1); Sodium 137 mmol/L (136-145)
[2020-03-25 07:17] LABS: Alanine Aminotransferase 11 U/L (12-78); Albumin Level 2.9 g/dl (3.5-5.0); Albumin/Globulin Ratio 1.3 (1.1-1.8); Alkaline Phosphatase 35 U/L (38-126); Anion Gap 6.3 mEq/L (5-15); Aspartate Amino Transferase 33 U/L (14-36); Bilirubin,Total 0.4 mg/dl (0.2-1.3); Blood Urea Nitrogen 8 mg/dl (7-17); Carbon Dioxide 26 mmol/L (22.0-30.0); Creatinine Clearance Estimated 132 mL/min (50-200); Estimated Glomerular Filt Rate 107 ml/min (>60); GFR (African American) 130 ML/MIN (>60); Globulin 2.3 g/dL (1.3-3.2); Glucose 99 mg/dl (74-100); Total Protein,Serum 5.2 g/dl (6.3-8.2)
[2020-03-25 07:28] LABS: Calcium 7.5 mg/dl (8.4-10.2)
[2020-03-25 08:00] VITALS: PULSE 70
[2020-03-25 08:01] VITALS: BP 103/56; PULSE 69; RESP 16; TEMP 36.9; O2SAT 98
--- NOTE | 2020-03-25 08:14 | HMH.ORTHPN ---
Subjective Date: 03/25/20 Time: 07:55 Principal diagnosis: Left trimalleolar emil fracture Interval history: Patient resting comfortably at bedside. Denies N/V, F/C, SOB/CP. She denies issue overnight. The block is starting to wear off. She was given Rx Nabumetone and Dunbar 10/325 x 3days from ER. She had some PT yesterday and wants crutches, she plans to rent a rolling knee scooter (RKS). PN: Obj Ex Vital signs: Temp Pulse Resp BP Pulse Ox 98.5 F 69 16 103/56 L 98 03/25/20 08:01 03/25/20 08:01 03/25/20 08:01 03/25/20 08:01 03/25/20 08:01 - Constitutional no acute distress - Routine HEENT Exam Head: Present: normocephalic - Routine Neck Exam Present: full ROM - Routine Chest/Breast/Axilla Exam Chest wall: Absent: tenderness - Routine Respiratory Exam Present: CTA bilaterally - Routine Cardiovascular Exam Present: RRR - Routine Abdominal Exam Present: soft - Routine Extremities Exam Present: pulses intact, normal capillary refill. Absent: calf tenderness - Detailed Lower Extremity Exam Comments: Left lower extremity elevated on 2 pillows. Splint clean dry and intact no strike-through. Capillary fill time within normal limits. Light touch sensation and motor function intact but decreased secondary to nerve block. Polar pack to the left posterior knee. No calf or thigh pain noted bilaterally. - Routine Back/Spine/Pelvis Exam Back/Spine: Present: full ROM - Routine Skin Exam Present: intact - Routine Neurological Exam Present: alert, oriented X3, CN II-XII intact - Routine Psychiatric Exam Present: normal affect - Urinary Catheter Management Reagan Cath placed during this visit: yes, but has since been removed by the nurse Urethral indwelling: Yes Reason for continuing: Surgical procedure (remove) Insertion date: 03/24/20 Removal date: 03/25/20 Progress Note: A&P (1) Trimalleolar fracture of left ankle Status: Acute Current Visit: Yes (2) Soft tissue injury of left ankle Status: Acute Current Visit: Yes (3) Left ankle pain Status: Acute Current Visit: Yes (4) Left ankle injury Status: Acute Current Visit: Yes (5) Intractable pain Status: Acute Current Visit: Yes Assessment and Plan for All Diagnoses:: S/p left open reduction internal fixation trimalleolar ankle fracture (ORIF distal fibula, ORIF medial malleolus, ORIF syndesmosis), ankle synovectomy Sx: 03/24/20, POD #1 Overall patient has done well overnight. She has no complaints this morning. Still some numbness secondary to block. I educated the patient on the perioperative plan. Discussed the importance of strict nonweightbearing. She did well with physical therapy yesterday and will have 1 more session prior to discharge today to work on nonweightbearing gait training and stairs. Patient will follow-up with me in 1 week for postop check. Discharge/Plan: Maintain dressing clean dry and intact to the left lower extremity Nonweightbearing to LLE: crutches and recommend RKS Cryo/Cuff behind the left knee Elevate on 2 pillows SCD and DVT prophylaxis: okay to take aspirin 81mg daily (lower risk for DVT) Consult case management: Patient will need crutches e-Rx Dunbar 7.5/325 Zofran, Motrin [facility] Postop foot and ankle surgery packet given to the patient Discuss plan of care with Dr. Corona: ok to discharge from Foot and Ankle stand-point Follow up in one week
--- NOTE | 2020-03-25 08:38 | HMH.ACPN2 ---
<Yocasta Phipps - Last Filed: 03/25/20 08:38> Internal Medicine - PN: Subj *Date: 03/25/20 *Time: 08:38 Interval history: Patient states she is feeling well today. She does have minimal pain in her left leg and her toes are still slightly numb. She has been up to the bathroom and has done well. Dr. Shukla has seen the patient today and PT will see her later on this morning. She should be able to go home this afternoon. Exam Vital signs and Labs for Last 24 Hours: Temp Pulse Resp BP Pulse Ox 98.5 F 69 16 103/56 L 98 03/25/20 08:01 03/25/20 08:01 03/25/20 08:01 03/25/20 08:01 03/25/20 08:01 Laboratory Results - last 24 hr 03/24/20 08:10: Urine Color Yellow, Urine Appearance Clear, Urine pH 6.5, Ur Specific [place] 1.010, Urine Protein Negative, Urine Glucose (UA) Negative, Urine Ketones Negative, Urine Blood Negative, Urine Nitrate Negative, Urine Bilirubin Negative, Urine Urobilinogen 0.2, Ur Leukocyte Esterase Negative, Urine RBC 5-10, Urine WBC Occasional, Ur Squamous Epith Cells Occasional, Urine Bacteria None 03/25/20 06:30: WBC 9.4 D, RBC 3.25 L, Hgb 9.8 L, Hct 31.8 L, MCV 97.9, MCH 30.2, MCHC 30.9 L, RDW 13.4, Plt Count 221 D, MPV 8.0, Neut % (Auto) 67.5, Lymph % (Auto) 24.5, [place] % (Auto) 7.1, Eos % (Auto) 0.6, Baso % (Auto) 0.3, Neut # (Auto) 6.3, Lymph # (Auto) 2.3, [place] # (Auto) 0.7, Eos # (Auto) 0.1, Baso # (Auto) 0.0 03/25/20 06:30: Sodium 137, Potassium 3.3 L, Chloride 108 H, Carbon Dioxide 26, Anion Gap 6.3, BUN 8 D, Creatinine 0.60, Estimated Creat Clear 132, Estimated GFR 107, Est GFR ( Amer) 130, Glucose 99, Calcium 7.5 L D, Total Bilirubin 0.4, AST 33 D, ALT 11 L, Alkaline Phosphatase 35 L, Total Protein 5.2 L, Albumin 2.9 L, Globulin 2.3, Albumin/Globulin Ratio 1.3 I & O for Last 24 hours: Intake & Output 03/22/20 03/23/20 03/24/20 03/25/20 11:59 11:59 11:59 11:59 Intake Total 3882 / 3882 2223 / 2223 Output Total 1200 / 1200 1875 / 1875 Balance 2682 / 2682 348 / 348 Weight 159 lb 2.78 oz 159 lb 8 oz - Constitutional no acute distress - *Routine Respiratory Exam Present: CTA bilaterally - *Routine Cardiovascular Exam Present: RRR - *Routine Abdominal Exam Present: soft, normoactive bowel sounds. Absent: tenderness - *Routine Extremities Exam Present: edema. Absent: cyanosis, clubbing Comments: left leg wrapped in a splint - *Routine Neurological Exam Present: alert, oriented X3 Assessment and Plan (1) Trimalleolar fracture of left ankle Start date: 03/23/20 Current visit: Yes Status: Acute Category: Medical Code(s): S82.852A - Displaced trimalleolar fracture of left lower leg, initial encounter for closed fracture (2) Soft tissue injury of left ankle Start date: 03/23/20 Current visit: Yes Status: Acute Category: Medical Code(s): S99.912A - Unspecified injury of left ankle, initial encounter (3) Left ankle pain Start date: 03/23/20 Current visit: Yes Status: Acute Category: Medical Code(s): M25.572 - Pain in left ankle and joints of left foot - Assessment and plan all Dx Assessment and Plan for all problems:: Patient can possibly be discharged later on this afternoon. <Dustin Corona - Last Filed: 03/25/20 08:40> Internal Medicine - PN: Subj *Date: 03/25/20 *Time: 08:40 Exam Vital signs and Labs for Last 24 Hours: Temp Pulse Resp BP Pulse Ox 98.5 F 69 16 103/56 L 98 03/25/20 08:01 03/25/20 08:01 03/25/20 08:01 03/25/20 08:01 03/25/20 08:01 Laboratory Results - last 24 hr 03/24/20 08:10: Urine Color Yellow, Urine Appearance Clear, Urine pH 6.5, Ur Specific [place] 1.010, Urine Protein Negative, Urine Glucose (UA) Negative, Urine Ketones Negative, Urine Blood Negative, Urine Nitrate Negative, Urine Bilirubin Negative, Urine Urobilinogen 0.2, Ur Leukocyte Esterase Negative, Urine RBC 5-10, Urine WBC Occasional, Ur Squamous Epith Cells Occasional, Urine Bacteria None 03/25/20 06:
--- NOTE | 2020-03-25 10:14 | HMH.PTEV ---
Physical Therapy Evaluation Rehab PT IP Evaluation Start: 03/24/20 11:58 Freq: ONCE Status: Active Protocol: Document 03/25/20 10:09 SILVANA (Rec: 03/25/20 10:14 [email or web address] [id number]) Subjective/History History History This is the initial IP PT evaluation for Sharee Gaytan. Pt is a 41 y/o female admitted to [facility] due to L ankle fx. Pt reports she was mounting her horse when it began to green and threw her off. Pt reports she landed and saw her ankle bent the wrong way Subjective Subjective Pt reprots she still has some numbness in foot due to block Rehab PT IP Eval Objective Appearance Patient Behavior Appropriate,Cooperative Patient Orientation Person,Place,Time Difficulty following instructions none Speech Pattern Clear,Appropriate Ambulation Patient Able to Ambulate Yes Ambulation Observation IP General Gait Pattern Observation Antalgic Gait,Decrease Weight Bear (L) Ambulation Distance (feet) 35 Ambulation Assistive Device Axillary Crutches Ambulation Ability Supervision/Stand by Balance Ability to Arise Able, uses arms to help Sitting Balance Steady, safe Standing Balance Steady, wide stance Dynamic Sitting Balance Ability Normal Dynamic Standing Balance Ability Fair Transfers Bed Transfer Ability Independent Chair Transfer Ability Independent Sit to Stand Bed Transfer Ability Supervision/Stand by,Contact Guard/Hand Hold Sit to Stand Chair Transfer Ability Supervision/Stand by,Contact Guard/Hand Hold Rehab PT IP prob,goals,plan Problems Date of Evaluation: 03/25/20 PT IP Problems Gait,Self care Rehab Potential Rehab Potential Good Equipment Needs Assistive Devices Axillary Crutches Discharge Plan PT Discharge Plan Pt to dc to [facility] w/ crutches. Pt will attempt to rent RKS as other AD, pt safe to dc upon medical stable G -code Required No PHYSICIAN CERTIFICATION: I certify the specified therapy services for Sharee Hubbard are required, authorized, and reviewed every 30 days.
--- NOTE | 2020-03-25 10:14 | SW/DCPLANNER ---
RECEIVED REFERRAL FOR THIS PATIENT TO HAVE A KNEE SCOOTER... I HAVE SENT REFERRAL TO [facility] TO DELIVER THIS TO THE HOSPITAL PRIOR TO PATIENT DISCHARGING.. PATIENT WILL DISCHARGE LATER TODAY....
--- NOTE | 2020-03-25 10:41 | PC.NURSE ---
PATIENT COMPLETED CRUTCH TRAINING WITH PHYSICAL THERAPY
--- NOTE | 2020-03-25 11:42 | HMH.PHAINT ---
DISCHARGE COUNSELING COMPLETED ON PATIENT. NEW PRESCRIPTIONS INCLUDE NABUMETONE AND NORCO. PRESCRIPTION FOR ZOFRAN WAS SENT TO CLINIC PHARM[facility]Y. PATIENT IS TO STOP IBUPROFEN AND PREVIOUS NORCO PRESCRIPTION. NOTICED ON DR. MCKEON'S NOTE THAT SHE WANTED PATIENT TO TAKE BABY ASPIRIN FOR DVT PROPHYLAXIS, BUT MEDICATION WAS NOT ON DISCHARGE LIST. CALLED AND SPOKE WITH DR. MCKEON AND SHE CONFIRME THAT PATIENT SHOULD BE TAKING ASPIRIN. SPOKE TO PATIENT ABOUT THIS AND ADDED MEDICATION TO DISCHARGE MED LIST. PATIENT VERBALIZED UNDERSTANDING AND HAD NO QUESTIONS AT THIS TIME. -WESLEY MCCORD, MONICAD
--- NOTE | 2020-03-25 12:01 | HMH.DCSUM ---
General - General Admission date:: 03/23/20 Discharge date: 03/25/20 HPI HPI: Mrs. Hubbard is a 45-year-old healthy female who presented to the ED 03/23/2020 after sustaining a fall off of a bucking horse around 2 PM. She states she landed on her feet and immediately knew that she had an injury. She had no loss of consciousness. She states she had to crawl a long distance for help. Patient was seen and evaluated by ED doctor. Orthopedic surgeon, Dr. Keller, was consulted for closed reduction of left trimalleolar ankle fracture dislocation. Dr. Corona admitted the patient for pain control. Dr. Shukla was consulted for surgical evaluation. Of note: Patient's was positive for COVID and has been self isolating at their home. Patient has little to no help at home. Hence the admission for stabilization prior to discharge home. At the ER bedside patient reported pain control with medication. She had nausea and actively vomited secondary to sedation medication. At the time of this assessment patient has already had ORIF of the distal fibula; ORIF of medial malleolus, left ORIF syndesmosis, left ankle synovectomy, application of amniotic graft and left application of posterior splint by Dr. Shukla. Patient at this time is comfortable and visiting with a friend. Hospital Course Hospital Course: Patient was continued on pain management and postop care as per Dr. Shukla. She was able to rest comfortably and had some physical therapy. She planned to use crutches once home and a rolling knee scooter. She had some residual numbness secondary to the block. She was to remain nonweightbearing and follow-up with Dr. Shukla in her office. She also wanted her to take an 81 mg aspirin daily. A prescription was sent for Brock and Motrin and she was stable to be discharged home. Her potassium was replaced due to hypokalemia. Objective Vital signs: Temp Pulse Resp BP Pulse Ox 98.5 F 69 16 103/56 L 98 03/25/20 08:01 03/25/20 08:01 03/25/20 08:01 03/25/20 08:01 03/25/20 08:01 Narrative: - Constitutional no acute distress Comments: Sitting up in the bed talking with a friend. - *Routine HEENT Exam Head: Present: normocephalic, atraumatic Eye: Present: PERRL. Absent: conjunctival icterus, scleral injection ENT: Present: mucous membranes moist, oropharynx clear - *Routine Neck Exam Present: supple. Absent: carotid bruit, lymphadenopathy, thyromegaly - *Routine Respiratory Exam Present: CTA bilaterally (Anteriorly and posteriorly) - *Routine Cardiovascular Exam Present: RRR. Absent: murmur - *Routine Abdominal Exam Present: soft, normoactive bowel sounds. Absent: tenderness, guarding - *Routine Extremities Exam Absent: edema Comments: Left leg with Andrew dressing with constant icing per machine. Left toes with edema. Right leg without edema. Scud on - *Routine Neurological Exam Present: alert, oriented X3 Results Labs on day of discharge: Labs from last 24 hours 03/25/20 03/25/20 03/24/20 06:30 06:30 08:10 WBC 9.4 D RBC 3.25 L Hgb 9.8 L Hct 31.8 L MCV 97.9 MCH 30.2 MCHC 30.9 L RDW 13.4 Plt Count 221 D MPV 8.0 Neut % (Auto) 67.5 Lymph % (Auto) 24.5 [place] % (Auto) 7.1 Eos % (Auto) 0.6 Baso % (Auto) 0.3 Neut # (Auto) 6.3 Lymph # (Auto) 2.3 [place] # (Auto) 0.7 Eos # (Auto) 0.1 Baso # (Auto) 0.0 Sodium 137 Potassium 3.3 L Chloride 108 H Carbon Dioxide 26 Anion Gap 6.3 BUN 8 D Creatinine 0.60 Estimated Creat Clear 132 Estimated GFR 107 Est GFR ( Amer) 130 Glucose 99 Calcium 7.5 L D Total Bilirubin 0.4 AST 33 D ALT 11 L Alkaline Phosphatase 35 L Total Protein 5.2 L Albumin 2.9 L Globulin 2.3 Albumin/Globulin Ratio 1.3 Urine Color Yellow Urine Appearance Clear Urine pH 6.5 Ur Specific [place]
== END 2020-03-25 14:20 | disposition home or self-care (01) ==
LOC: ER 17:06 → 2ND 18:18
PROVIDERS: Podiatrist; Admitting Provider Family Medicine; Emergency Provider Family Medicine; Visit Provider Family Medicine
PROC: (CPT 27823; principal; 2020-03-24 07:30)
DX: S82.852A Displaced trimalleolar fracture of left lower leg, initial encounter for closed fracture (principal); S93.02XA Subluxation of left ankle joint, initial encounter; V80.010A Animal-rider injured by fall from or being thrown from horse in noncollision accident, initial encounter; Y93.52 Activity, horseback riding; Y92.73 Farm field as the place of occurrence of the external cause
CPT/HCPCS: 27823; 27625; 29515; C5275; 36415; 71045; 73590; 73600; 73610; 73700; 76000; 80053; 81001; 81025; 85025; 87581; 87633; 87798; 93005; 96365; 96366; 96375; 96376; 99285; C1713; C1762; C1776; G0378; J0131; J2405; Q4211

== ENCOUNTER → 2020-04-16 10:27 | Outpatient (CLI) | payer OTHER, SELFPAY ==
--- NOTE | 2020-04-16 10:35 | XR_ITS ---
PROCEDURE: XR ANKLE WT BEARING LT MIN 3V CLINICAL INDICATION: post-op Follow-up ORIF COMPARISON: XR ANKLE LT 2V from 03/23/2020 XR ANKLE LT 2V from 03/23/2020 XR ANKLE LT 2V from 03/24/2020 XR ANKLE LT MIN 3V from 03/24/2020 FINDINGS: Good alignment status post ORIF distal tib fib with lateral fibular bone plate, medial tibial bone plate with longitudinal screw in the medial malleolar region and with translucent fixator at the distal tib fib syndesmosis. Ankle mortise is preserved. Cast has been removed. Fracture lines are still visible IMPRESSION: Good alignment status post ORIF left ankle as described above Dictated by: Raphael Gomez MD 04/16/2020 13:43 Electronically signed by Raphael Gomez MD in [place] 04/16/2020 13:43
== END ==
PROVIDERS: Visit Provider Podiatrist
DX: Z98.890 Other specified postprocedural states (principal); S82.852D Displaced trimalleolar fracture of left lower leg, subsequent encounter for closed fracture with routine healing; S99.912D Unspecified injury of left ankle, subsequent encounter
CPT/HCPCS: 73610

== ENCOUNTER → 2020-05-07 10:13 | Outpatient (CLI) | payer OTHER, SELFPAY ==
--- NOTE | 2020-05-07 10:16 | XR_ITS ---
PROCEDURE: XR ANKLE WT BEARING LT MIN 3V CLINICAL INDICATION: post-op Follow-up surgery COMPARISON: XR ANKLE WT BEARING LT MIN 3V from 04/16/2020 FINDINGS: No change status post ORIF left tib fib with medial tibial bone plate, lateral fibular bone plate, and prior syndesmotic repair along with a medial malleolar screw. The fibular fracture line is still visible. The talar dome has an unremarkable appearance. The ankle mortise appears preserved. Fracture line still visible at the base of the medial malleolus. IMPRESSION: No change good alignment status post ORIF tib fib fracture Dictated by: Raphael Gomez MD 05/07/2020 15:33 Electronically signed by Raphael Gomez MD in [place] 05/07/2020 15:33
== END ==
PROVIDERS: Visit Provider Podiatrist
DX: Z98.890 Other specified postprocedural states (principal)
CPT/HCPCS: 73610

== ENCOUNTER → 2020-05-28 10:49 | Outpatient (CLI) | payer OTHER, SELFPAY ==
--- NOTE | 2020-05-28 10:52 | XR_ITS ---
PROCEDURE: XR ANKLE WT BEARING LT MIN 3V CLINICAL INDICATION: post-op Follow-up surgery COMPARISON: XR ANKLE LT 2V from 03/23/2020 XR ANKLE LT 2V from 03/24/2020 XR ANKLE LT MIN 3V from 03/24/2020 XR ANKLE WT BEARING LT MIN 3V from 04/16/2020 XR ANKLE WT BEARING LT MIN 3V from 05/07/2020 FINDINGS: Status post ORIF with lateral bone plate the distal shaft of the fibula and medial bone plate of the tibia with oblique medial malleolar screw. The fracture line of the distal fibula is once again noted not significantly changed. Medial malleolar fracture line is barely visible The joint spaces are well-preserved. No significant degenerative/arthritic changes. No erosive changes evident. Other findings:None. IMPRESSION: Good alignment status post ORIF. 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 Dictated by: Raphael Gomez MD 05/28/2020 16:03 Electronically signed by Raphael Gomez MD in [place] 05/28/2020 16:03
== END ==
PROVIDERS: Visit Provider Podiatrist
DX: Z98.890 Other specified postprocedural states (principal)
CPT/HCPCS: 73610

== ENCOUNTER → 2020-07-02 12:02 | Outpatient (CLI) | payer OTHER, SELFPAY ==
--- NOTE | 2020-07-02 12:10 | XR_ITS ---
PROCEDURE: XR ANKLE WT BEARING LT MIN 3V CLINICAL INDICATION: post-op Follow-up surgery COMPARISON: CR XR ANKLE LT MIN 3V from 03/23/2020 CR XR ANKLE WT BEARING LT MIN 3V from 05/28/2020 FINDINGS: Postsurgical changes. No change in the tibial and fibular bone plates with cortical screws. There remains good alignment with preservation the ankle mortise. The fibular fracture of the distal shaft of the fibula is once again noted consistent with nonunion. 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
== END ==
PROVIDERS: PCP Family Medicine; Visit Provider Podiatrist
DX: S82.852K Displaced trimalleolar fracture of left lower leg, subsequent encounter for closed fracture with nonunion (principal); Z98.890 Other specified postprocedural states
CPT/HCPCS: 73610

== ENCOUNTER → 2020-08-03 10:14 | Outpatient (CLI) | payer OTHER, SELFPAY ==
--- NOTE | 2020-08-03 10:17 | XR_ITS ---
PROCEDURE: XR ANKLE WT BEARING LT MIN 3V CLINICAL INDICATION: postop views Follow-up surgery/fracture COMPARISON: CR XR ANKLE LT MIN 3V from 03/23/2020 CR XR ANKLE WT BEARING LT MIN 3V from 04/16/2020 CR XR ANKLE WT BEARING LT MIN 3V from 05/07/2020 CR XR ANKLE WT BEARING LT MIN 3V from 05/28/2020 CR XR ANKLE WT BEARING LT MIN 3V from 07/02/2020 FINDINGS: No change in the medial and lateral bone plates has the distal fibula and tibia. Fracture line remains visible at the distal shaft of the fibula not significantly changed. The medial malleolar fracture line is not visible. No hardware malfunction apparent IMPRESSION: ORIF tib fib not significantly changed. 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 Dictated by: Raphael Gomez MD 08/03/2020 17:30 Raphael Gomez MD in [place] 08/03/2020 17:30
== END ==
PROVIDERS: PCP Family Medicine; Visit Provider Podiatrist
DX: Z98.890 Other specified postprocedural states (principal); S99.912D Unspecified injury of left ankle, subsequent encounter; S82.832K Other fracture of upper and lower end of left fibula, subsequent encounter for closed fracture with nonunion; S82.852K Displaced trimalleolar fracture of left lower leg, subsequent encounter for closed fracture with nonunion; M76.62 Achilles tendinitis, left leg
CPT/HCPCS: 73610

== ENCOUNTER 2020-08-15 15:49 | Emergency (ER) | payer OTHER, SELFPAY ==
[2020-08-15 16:19] VITALS: BP 123/72; PULSE 99; RESP 14; TEMP 36.6; O2SAT 100; BMI 25.7
--- NOTE | 2020-08-15 16:27 | HMH.EDUTC ---
[facility] [place] Disposition Clinical Impression: Exposure to COVID-19 virus Disposition: Home, Self-Care Condition on Discharge: Good Instructions: Preventing the Spread of Coronavirus Discharge Instructions Additional Instructions: isolate till results known return if symptoms worsen or do not improve Referrals: William Suarez MD [Primary Care Provider] - Time of Disposition: 16:36 Medical Decision Making - Vladisalv Inquiry Pt receiving controlled substance: No Vital Signs: 08/15/20 16:19 Temperature 97.9 F Temperature Source Oral Pulse Rate [Right Brachial] 99 H Respiratory Rate 14 Blood Pressure [Right Arm] 123/72 Blood Pressure Mean [Right Arm] 89 Blood Pressure Source [Right Arm] Automatic Cuff Blood Pressure Position [Right Arm] Sitting 02 Sat by Pulse Oximetry 100 Oxygen Delivery Method Room Air Orders (Tests/Meds): ORDERS Category Date Time Status Covid-19 Nasal PCR ([facility]) Routine Lab 08/15/20 16:02 Ordered [facility] [place] HPI - General Chief complaint: [facility] Stated complaint: Sore throat, exposed to COVIDC Time Seen by Provider: 08/15/20 16:27 Mode of Arrival: Ambulatory Source of Information: Patient Limitations: No Limitations Description of Symptoms (Recalled from Triage Doc. by RN): PATIENT C/O SORE THROAT AND STATES SHE WAS RECENTLY EXPOSED TO COVID HEENT Symptoms (Recalled from RN notes): Yes Resp Symptoms (Recalled from RN notes): No Skin Symptoms (Recalled from RN notes): No MS Symptoms (Recalled from RN notes): No Functional Status (Recalled from RN notes): WNL - History of Present Illness Provider Complaint: 45 yr old female presents for sore throat, nasal congestion for 1 week. pt states she was exposed to covid on - Related Data Home Medications Medication Instructions Recorded Confirmed fluticasone propionate 50 1 spray INTRANASAL DAILY 07/02/20 08/15/20 mcg/actuation nasal spray,suspension omeprazole 20 mg capsule,delayed 20 mg PO DAILY cap 07/02/20 08/15/20 release Allergies Allergy/AdvReac Type Severity Reaction Status Date / Time hydromorphone [From Dilaudid] Allergy Nausea Verified 08/03/20 10:55 - Worker's Comp Is this a Worker's Comp case?: No [facility] History - Hepatitis A Screen Drug use history?: No High risk sexual behaviors?: No History of sexually transmitted infection?: No Currently employed?: No Childcare worker?: No Do you have indoor plumbing?: Yes Do you have electricity?: Yes Attestation statement:: This patient has been screened for Hepatitis A risk factors. I have reviewed the patient's past medical history: Yes Medical History: Reports:: Gastroesophageal Reflux Disease(GERD) Denies:: Cancer, Diabetes Mellitus Type 1, Diabetes Mellitus Type 2, Hypertension, Internal Pacemaker, Lung Disease, Migraine, MRSA, Seizures Other Medical History: Reports: Anemia, Sinus Problems. Denies: Blood Transfusion Reaction, Hypothyroidism Other Surgeries: Yes: No Previous Surgery, Other (Cystoscopy; urethral dilatation about every 5 to 6 years). No: Pacemaker Amputation: No Comment: cystoscopy - Social History Smoking Status: Never smoker Alcohol Intake: never Substance Use Type: other Occupational Status: other Housing: house Household Members: spouse, children Family Hx:: Cancer, Coronary Artery Disease, Heart Attack, Hypertension Comment: Sister had glioblastoma; mother and father both had skin melanomas Comment: Has IUD ROS Obtained: Yes Systems reviewed as appropriate & no additional complaints - Constitutional Constitutional: Reports system reviewed and no additional complaints, except as docu, Denies fever(s) - Eyes Eyes: Reports system reviewed and no additional complaints, except as docu, Denies eye discharge - ENT Ears, Nose, Mouth, and Throat: Reports system reviewed and no additional complaints, except as docu, Reports nasal congestion, Reports nasal discharge, Reports sore throat - Cardiovascul
[2020-08-15 16:38] LABS: UTC Strep Screen (Rapid) Negative (Negative)
[2020-08-15 16:41] VITALS: BP 123/72; PULSE 99; RESP 14; TEMP 36.6; O2SAT 100
== END 2020-08-15 16:45 | disposition home or self-care (01) ==
PROVIDERS: Emergency Provider Nurse Practitioner Family; PCP Family Medicine
DX: Z20.828 Contact with and (suspected) exposure to other viral communicable diseases (principal); J02.9 Acute pharyngitis, unspecified; R09.81 Nasal congestion; K21.9 Gastro-esophageal reflux disease without esophagitis; E03.9 Hypothyroidism, unspecified; Z88.5 Allergy status to narcotic agent
CPT/HCPCS: 87880; 99202; U0003

== ENCOUNTER → 2020-09-03 12:11 | Outpatient (CLI) | payer OTHER, SELFPAY ==
--- NOTE | 2020-09-03 12:14 | XR_ITS ---
PROCEDURE: XR ANKLE WT BEARING LT MIN 3V CLINICAL INDICATION: post-op Follow-up ORIF COMPARISON: CR XR ANKLE WT BEARING LT MIN 3V from 05/07/2020 CR XR ANKLE WT BEARING LT MIN 3V from 05/28/2020 CR XR ANKLE WT BEARING LT MIN 3V from 07/02/2020 CR XR ANKLE WT BEARING LT MIN 3V from 08/03/2020 FINDINGS: Status post ORIF distal tib fib fracture with syndesmotic repair. Fracture line remains visible at the distal fibula. Medial malleolar fracture line is barely visible. Ankle mortise is preserved. IMPRESSION: Prior ORIF with good alignment with non bony union of the fibular fracture Dictated by: Raphael Gomez MD 09/03/2020 13:06 Raphael Gomez MD in [place] 09/03/2020 13:06
== END ==
PROVIDERS: PCP Family Medicine; Visit Provider Podiatrist
DX: Z98.890 Other specified postprocedural states (principal); M25.572 Pain in left ankle and joints of left foot
CPT/HCPCS: 73610

== ENCOUNTER 2020-09-23 15:04 | Emergency (ER) | payer OTHER, SELFPAY ==
[2020-09-23 15:23] VITALS: BP 114/70; PULSE 71; RESP 14; TEMP 36.9; O2SAT 97; BMI 25.7
--- NOTE | 2020-09-23 15:38 | HMH.EDUTC ---
[facility] [place] Disposition Clinical Impression: Exposure to COVID-19 virus Disposition: Home, Self-Care Condition on Discharge: Good Instructions: Preventing the Spread of Coronavirus Discharge Instructions Additional Instructions: *Monitor Temp, Over the counter Motrin or Tylenol as directed/as needed Tylenol every 4 hours and Motrin every 6 hours (as long as your family doctor has told you that you can take it) for fever or pain. and straight to ER if unable to lower temp less than 101.0 after medication given *Warm salt water gargles may help to soothe the throat *Throat Lozenges *Warm fluids like tea with honey may help to soothe the throat *Sleep elevated *Humidifier/Vaporizer *Flonase 2 sprays in each nostril daily but be aware that it may take 2-3 days before you notice improvement Follow up IMMEDIATELY for new or worsening symptoms or no Noticeable improvement over the next 48-72 hours. 911 for difficulty breathing or swallowing You was tested for today for COVID19 your test result should be back in the next 24-48 hours, you may call to the [facility] later today or tomorrow to see if your test results are back and the result [phone] [facility] hours are 9am-9pm You was given a handout with instructions for Self Quarantine and Self isolation for while you wait on test results and what to do if they are positive If you are positive the Health Dept will be contacting you also Prescriptions: Benzonatate [Tessalon Perle 100mg Cap*] 100 mg PO TID PRN #30 cap PRN Reason: Cough Transmission Status: Pending to [id number] Referrals: William Suarez MD [Primary Care Provider] - As needed Forms: Work/School Release Time of Disposition: 15:43 Medical Decision Making - Vladislav Inquiry Pt receiving controlled substance: No Vladislav was queried for this patient: No Vital Signs: 09/23/20 15:23 Temperature 98.4 F Temperature Source Oral Pulse Rate [Radial] 71 Respiratory Rate 14 Blood Pressure [Right Arm] 114/70 Blood Pressure Mean [Right Arm] 84 Blood Pressure Source [Right Arm] Automatic Cuff Blood Pressure Position [Right Arm] Sitting 02 Sat by Pulse Oximetry 97 Oxygen Delivery Method Room Air Orders (Tests/Meds): ORDERS Category Date Time Status Covid-19 Nasal PCR Sendout [facility] 09/23/20 15:26 Ordered [facility] [place] HPI - General Stated complaint: COVID EXPOSURE Time Seen by Provider: 09/23/20 15:38 Mode of Arrival: Ambulatory Source of Information: Patient Limitations: No Limitations Description of Symptoms (Recalled from Triage Doc. by RN): COVID EXPOSURE HEENT Symptoms (Recalled from RN notes): No Resp Symptoms (Recalled from RN notes): No Skin Symptoms (Recalled from RN notes): No MS Symptoms (Recalled from RN notes): No Functional Status (Recalled from RN notes): WNL - History of Present Illness Provider Complaint: Patient states that she was recently exposed to COVID by her that tested positive earlier today States that she hasnt really had any symptoms other than a scratchy sore throat Denies fever - Related Data Home Medications Medication Instructions Recorded Confirmed fluticasone propionate 50 1 spray INTRANASAL DAILY 07/02/20 09/03/20 mcg/actuation nasal spray,suspension omeprazole 20 mg capsule,delayed 20 mg PO DAILY cap 07/02/20 09/03/20 release ibuprofen 800 mg tablet 800 mg PO tab 09/03/20 09/03/20 nitrofurantoin macrocrystal 50 mg 50 mg PO cap 09/03/20 09/03/20 capsule Previous Rx's Medication Instructions Recorded Benzonatate [Tessalon Perle 100mg 100 mg PO TID PRN #30 cap 09/23/20 Cap*] Allergies Allergy/AdvReac Type Severity Reaction Status Date / Time hydromorphone [From Dilaudid] Allergy Nausea Verified 09/03/20 13:16 - Worker's Comp Is this a Worker's Comp case?: No [facility] History - Hepatitis A Screen Drug use history?: No High risk sexual behaviors?: No History of sexually transmitted infection?: No Currently empl
[2020-09-23 15:45] VITALS: BP 114/70; PULSE 71; RESP 14; TEMP 36.9; O2SAT 97
[2020-09-25 10:50] LABS: Covid-19 Nasal PCR Sendout Lex Not Detected
== END 2020-09-23 15:50 | disposition home or self-care (01) ==
PROVIDERS: Emergency Provider Nurse Practitioner; PCP Family Medicine
DX: Z20.828 Contact with and (suspected) exposure to other viral communicable diseases (principal); K21.9 Gastro-esophageal reflux disease without esophagitis; E03.9 Hypothyroidism, unspecified
CPT/HCPCS: 99201; U0004

== ENCOUNTER → 2020-10-19 14:34 | Outpatient (CLI) | payer OTHER, SELFPAY ==
--- NOTE | 2020-10-19 14:39 | XR_ITS ---
PROCEDURE: XR ANKLE WT BEARING LT MIN 3V CLINICAL INDICATION: postop foot surgery COMPARISON: CR XR ANKLE WT BEARING LT MIN 3V from 05/28/2020 CR XR ANKLE WT BEARING LT MIN 3V from 07/02/2020 CR XR ANKLE WT BEARING LT MIN 3V from 08/03/2020 CR XR ANKLE WT BEARING LT MIN 3V from 09/03/2020 FINDINGS: Status post ORIF tib fib with lateral fibular and medial tibial bone plates and a screw through the medial malleolus as well as a translucent fixator at the tib fib syndesmosis. Ankle mortise is preserved. Healing fracture involves the distal shaft of the fibula. IMPRESSION: Good alignment status post ORIF distal tib fib with healing distal fibular fracture Dictated by: Raphael Gomez MD 10/19/2020 15:49 Raphael Gomez MD in [place] 10/19/2020 15:49
== END ==
PROVIDERS: PCP Family Medicine; Visit Provider Podiatrist
DX: Z98.890 Other specified postprocedural states (principal); M25.572 Pain in left ankle and joints of left foot
CPT/HCPCS: 73610

== ENCOUNTER 2020-10-22 16:00 | Outpatient (RCR) | payer OTHER, SELFPAY ==
--- NOTE | 2020-05-20 08:55 | HMH.PTOPEV ---
PT Outpatient Evaluation Rehab PT Outpatient Evaluation Start: 05/20/20 08:43 Freq: Status: Active Protocol: Document 05/20/20 08:43 TERRANCE (Rec: 05/20/20 08:55 TERRANCE [id number]) Electronically Signed By Radhames Underwood, PT 05/20/20 08:43 Outpatient Therapy Subjective History Subjective History Patient is a 45 year old female presenting to outpatient PT with reports of L post-surgical ankle pain S/P ORIF for trimalleolar fracture performed on 03/24/20 (8w 1d S/P). Pt reports injury happened when she was thrown from a horse and landed on her feet. No other comorbidities to report. Chief Complaint Pain,Stiff,Swelling Symptom Type Burning,Numbness,Tingling Symptoms Relieved By Ice,OTC Meds,Elevation Symptoms Aggravated By Standing,Physical Activity, Walking Prior Functional Limitations None Current Functional Limitations Housework,Standing,Squatting, Recreation Activity,Walking, Stairs,Balance,Bending/ Stooping Symptom Description Intermittent Level of pain today (0-10) 1 Pain scale - at its best (0-10) 0 Pain scale - at its worst (0-10) 6 Ankle/Foot Eval Gait Observation General Gait Pattern Observation Antalgic Gait,Decrease Weight Bear (L) Assistive Device Ambulation Assistive Device Axillary Crutches Palpation Tenderness left Ankle/Foot Palpation Findings Tenderness Ankle/Foot Palpation Overall Comment med/lat malleolus ATFL 3/4 ROM Ankle/Foot Dorsiflexion w/Knee Extended -10 Active Range Motion (degrees) Ankle/Foot Dorsiflexion w/Knee Extended -5 Passive Range (degrees) Ankle/Foot Plantar Flexion Active Range WNL of Motion (degrees) Ankle/Foot Eversion Active Range of 8 Motion (degrees) Ankle/Foot Eversion Passive Range of 12 Motion (degrees) Ankle/Foot Inversion Active Range of 15 Motion (degrees) Ankle/Foot Inversion Passive Range of 20 Motion (degrees) Ankle/Foot ROM Limitations Soft Tissue Tightness,Bony Restriction Great Toe ROM Reason Not Measured Within Functional Limits Accessory Movements Ankle Accessory Movements that Elicit Talus Dorsal [place],Talus Symptoms Ventral [place] MMT left Ankle Dorsiflexion Strength Grade 4- Good- Ankle Plantarflexion Strength Grade 4- Good- Foot Eversion Strength Grade
--- NOTE | 2020-07-30 11:31 | HMH.RHREAS ---
Rehab Reassessment Rehab OP Re-assessment Start: 06/25/20 15:37 Freq: Status: Active Protocol: Document 07/30/20 11:19 TERRANCE (Rec: 07/30/20 11:31 TERRANCE [id number]) Electronically Signed By Radhames Underwood, PT 07/30/20 11:19 Rehab Re-assessment Subjective Subjective Patient reports 85% improvement since start of care. Objective Objective Notes AROM: DF 2; all others WFL MMT: WNL DF/PF; INV/EV 4+/5 SLS 10 sec TTP surgical incisions 1/4 Special tests negative Assessment Progress Assessment Progressing as Expected Assessment Notes Patient is tolerating progression well. She continues to have light duty restrictions at work. In order to return to full duty she is expected to run 1.5 miles in 18-19 mintues, which she has not been cleared to attempt by MD. 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 AROM and MMT have improved significantly as noted above. Patient would benefit from continuing skilled PT services to address functional limiations with work related activities. Patient goals met STG's; LTG 1,4,6 Goals Not Met LTG 235 Revised Goals Patient will complete return to full duty requirements (run 1.5 miles in 18-19 min) without difficulty. Plan Plan Continue with current POC. Frequency of Therapy 2x/week Duration of therapy 4 weeks Time and Billing Re-Eval Time 15 Re-Eval Billing Units 1 PHYSICIAN CERTIFICATION: I certify the specified therapy services for Sharee Hubbard are required, authorized, and reviewed every 30 days.
--- NOTE | 2020-09-16 11:57 | HMH.PTOPEV ---
PT Outpatient Evaluation Rehab PT Outpatient Evaluation Start: 05/20/20 08:43 Freq: Status: Active Protocol: Document 05/20/20 08:43 TERRANCE (Rec: 05/20/20 08:55 TERRANCE [id number]) Electronically Signed By Radhames Underwood, PT 05/20/20 08:43 Outpatient Therapy Subjective History Subjective History Patient is a 45 year old female presenting to outpatient PT with reports of L post-surgical ankle pain S/P ORIF for trimalleolar fracture performed on 03/24/20 (8w 1d S/P). Pt reports injury happened when she was thrown from a horse and landed on her feet. No other comorbidities to report. Chief Complaint Pain,Stiff,Swelling Symptom Type Burning,Numbness,Tingling Symptoms Relieved By Ice,OTC Meds,Elevation Symptoms Aggravated By Standing,Physical Activity, Walking Prior Functional Limitations None Current Functional Limitations Housework,Standing,Squatting, Recreation Activity,Walking, Stairs,Balance,Bending/ Stooping Symptom Description Intermittent Level of pain today (0-10) 1 Pain scale - at its best (0-10) 0 Pain scale - at its worst (0-10) 6 Ankle/Foot Eval Gait Observation General Gait Pattern Observation Antalgic Gait,Decrease Weight Bear (L) Assistive Device Ambulation Assistive Device Axillary Crutches Palpation Tenderness left Ankle/Foot Palpation Findings Tenderness Ankle/Foot Palpation Overall Comment med/lat malleolus ATFL 3/4 ROM Ankle/Foot Dorsiflexion w/Knee Extended -10 Active Range Motion (degrees) Ankle/Foot Dorsiflexion w/Knee Extended -5 Passive Range (degrees) Ankle/Foot Plantar Flexion Active Range WNL of Motion (degrees) Ankle/Foot Eversion Active Range of 8 Motion (degrees) Ankle/Foot Eversion Passive Range of 12 Motion (degrees) Ankle/Foot Inversion Active Range of 15 Motion (degrees) Ankle/Foot Inversion Passive Range of 20 Motion (degrees) Ankle/Foot ROM Limitations Soft Tissue Tightness,Bony Restriction Great Toe ROM Reason Not Measured Within Functional Limits Accessory Movements Ankle Accessory Movements that Elicit Talus Dorsal [place],Talus Symptoms Ventral [place] MMT left Ankle Dorsiflexion Strength Grade 4- Good- Ankle Plantarflexion Strength Grade 4- Good- Foot Eversion Strength Grade
== END 2020-10-22 16:05 | disposition home or self-care (01) ==
LOC: PT 16:00
PROVIDERS: Visit Provider Podiatrist
DX: S82.852A Displaced trimalleolar fracture of left lower leg, initial encounter for closed fracture (principal); Z98.890 Other specified postprocedural states
CPT/HCPCS: 97010; 97014; 97016; 97110; 97112; 97140; 97163; 97164; G0283

== ENCOUNTER 2020-11-15 09:33 | Emergency (ER) | payer OTHER, SELFPAY ==
[2020-11-15 09:45] VITALS: BP 110/74; PULSE 67; RESP 20; TEMP 36.8; O2SAT 97; BMI 25.7
--- NOTE | 2020-11-15 10:30 | HMH.EDUTC ---
[facility] [place] Disposition Clinical Impression: Encounter for laboratory testing for COVID-19 virus Disposition: Home, Self-Care Condition on Discharge: Good Instructions: DI for COVID-19 (Suspected or Confirmed ), Preventing the Spread of Coronavirus Discharge Instructions, Coronavirus Disease 2019 Additional Instructions: *Monitor Temp, Over the counter Motrin or Tylenol as directed/as needed Tylenol every 4 hours and Motrin every 6 hours (as long as your family doctor has told you that you can take it) for fever or pain. and straight to ER if unable to lower temp less than 101.0 after medication given *Warm salt water gargles may help to soothe the throat *Throat Lozenges *Warm fluids like tea with honey may help to soothe the throat *Sleep elevated *Humidifier/Vaporizer *Flonase 2 sprays in each nostril daily but be aware that it may take 2-3 days before you notice improvement Follow up IMMEDIATELY for new or worsening symptoms or no Noticeable improvement over the next 48-72 hours. 911 for difficulty breathing or swallowing You were tested for today for COVID19 your test result should be back in the next 24-48 hours, you may call to the [facility] to see if your test results are back in the next 48 hours [phone] [facility] hours are 9am-9pm You was given a handout with instructions for Self Quarantine and Self isolation for while you wait on test results and what to do if they are positive If you are positive the Health Dept will be contacting you also Prescriptions: Azithromycin [Z-Chris 250mg Tab] 250 mg PO DIRECTED #6 tab Transmission Status: Pending to [id number] Referrals: William Suarez MD [Primary Care Provider] - As needed Time of Disposition: 10:38 Medical Decision Making - Vladislav Inquiry Pt receiving controlled substance: No Vladislav was queried for this patient: No Vital Signs: 11/15/20 09:45 Temperature 98.2 F Temperature Source Oral Pulse Rate [Right Brachial] 67 Respiratory Rate 20 Blood Pressure [Right Arm] 110/74 Blood Pressure Mean [Right Arm] 86 Blood Pressure Source [Right Arm] Automatic Cuff Blood Pressure Position [Right Arm] Sitting 02 Sat by Pulse Oximetry 97 Oxygen Delivery Method Room Air Orders (Tests/Meds): ORDERS Category Date Time Status Covid-19 Nasal PCR ([facility]) Routine Lab 11/15/20 10:00 Ordered [facility] [place] HPI - General Stated complaint: covid test Time Seen by Provider: 11/15/20 10:30 Mode of Arrival: Ambulatory Source of Information: Patient Limitations: No Limitations Description of Symptoms (Recalled from Triage Doc. by RN): COVID TEST D/T EXPOSURE. C/O SINUS CONGESTION, SORE THROAT AND HEADACHE. REPORTS SHE RECEIVED HER FIRST DOSE OF MODERNA VACCINE ON 11/03/21 HEENT Symptoms (Recalled from RN notes): Yes Resp Symptoms (Recalled from RN notes): No Skin Symptoms (Recalled from RN notes): No MS Symptoms (Recalled from RN notes): No Functional Status (Recalled from RN notes): WNL - History of Present Illness Provider Complaint: Patient state that she has took her 1st dose of COVID vaccine State that her daughter tested positive for COVID yesterday and she has been having sinus pain and pressure along with drainage and scratchy throat States that she feels like it may be a sinus infection but wanted to get tested - Related Data Home Medications Medication Instructions Recorded Confirmed fluticasone propionate 50 1 spray INTRANASAL DAILY 07/02/20 11/15/20 mcg/actuation nasal spray,suspension omeprazole 20 mg capsule,delayed 20 mg PO DAILY cap 07/02/20 11/15/20 release Previous Rx's Medication Instructions Recorded Azithromycin [Z-Chris 250mg Tab] 250 mg PO DIRECTED #6 tab 11/15/20 Allergies Allergy/AdvReac Type Severity Reaction Status Date / Time hydromorphone [From Dilaudid] Allergy Nausea Verified 10/19/20 13:48 - Worker's Comp Is this a Worker's Comp case?: No [facility] History - Hepatitis A Screen Drug use hist
[2020-11-15 10:40] VITALS: BP 110/74; PULSE 67; RESP 20; TEMP 36.8; O2SAT 97
== END 2020-11-15 10:43 | disposition home or self-care (01) ==
PROVIDERS: Emergency Provider Nurse Practitioner; PCP Family Medicine
DX: Z20.822 Contact with and (suspected) exposure to COVID-19 (principal); J02.9 Acute pharyngitis, unspecified; K21.9 Gastro-esophageal reflux disease without esophagitis; E03.9 Hypothyroidism, unspecified; Z88.5 Allergy status to narcotic agent
CPT/HCPCS: 99202; G0463; U0003

== ENCOUNTER → 2021-01-18 16:20 | Outpatient (CLI) | payer OTHER, SELFPAY ==
--- NOTE | 2021-01-18 16:24 | XR_ITS ---
PROCEDURE: XR ANKLE WT BEARING LT MIN 3V CLINICAL INDICATION: postop views Follow-up surgery COMPARISON: CR XR ANKLE WT BEARING LT MIN 3V from 07/02/2020 CR XR ANKLE WT BEARING LT MIN 3V from 08/03/2020 CR XR ANKLE WT BEARING LT MIN 3V from 09/03/2020 CR XR ANKLE WT BEARING LT MIN 3V from 10/19/2020 FINDINGS: Postsurgical changes with a bone plate along the medial aspect of the distal tibia and longitudinal screw in the medial malleolar region. Lateral fibular bone plate is present. Translucent fixator also noted. There is good alignment. The ankle mortise is preserved. There has been further healing of the distal fibular fracture. Healed medial malleolar fracture also noted. IMPRESSION: Good alignment status post ORIF as described above Dictated by: Raphael Gomez MD 01/18/2021 20:45 Raphael Gomez MD in [place] 01/18/2021 20:45
== END ==
PROVIDERS: PCP Family Medicine; Visit Provider Podiatrist
DX: S99.912D Unspecified injury of left ankle, subsequent encounter; Z98.890 Other specified postprocedural states; S82.42 Transverse fracture of shaft of fibula
CPT/HCPCS: 73610

== ENCOUNTER → 2021-05-04 14:29 | Outpatient (CLI) | payer OTHER, SELFPAY ==
--- NOTE | 2021-05-04 14:31 | XR_ITS ---
PROCEDURE: XR ANKLE WT BEARING LT MIN 3V CLINICAL INDICATION: postop Follow-up surgery COMPARISON: CR XR ANKLE WT BEARING LT MIN 3V from 08/03/2020 CR XR ANKLE WT BEARING LT MIN 3V from 09/03/2020 CR XR ANKLE WT BEARING LT MIN 3V from 10/19/2020 CR XR ANKLE WT BEARING LT MIN 3V from 01/18/2021 FINDINGS: Status post ORIF distal tib fib. Bone plates are present as before with good alignment. Status post syndesmotic repair with preservation the ankle mortise. No hardware malfunction apparent. IMPRESSION: Good alignment status post ORIF distal tib fib Dictated by: Raphael Gomez MD 05/04/2021 14:44 Raphael Gomez MD in [facility] 05/04/2021 14:44
== END ==
PROVIDERS: PCP Family Medicine; Visit Provider Podiatrist
DX: Z98.890 Other specified postprocedural states (principal); S82.452 Displaced comminuted fracture of shaft of left fibula
CPT/HCPCS: 73610

== ENCOUNTER → 2021-09-08 14:53 | Outpatient (CLI) | payer OTHER, SELFPAY ==
--- NOTE | 2021-09-08 14:55 | CT_ITS ---
PROCEDURE: CT ANKLE LT WO CON CLINICAL HISTORY: CLOSED TIMELLEOLAR FRACTURE OF LT ANKLE, SEQUELE COMPARISON: CT CT ANKLE LT WO CON from 03/23/2020 CR XR ANKLE WT BEARING LT MIN 3V from 05/04/2021 TECHNIQUE: Axial images obtained with sagittal and coronal reformats. All CT scans at the facility use one or more dose reduction, viz: automated exposure control, ma/kV adjustment per patient size (including targeted exams where dose is matched to indication, i.e. head), or iterative reconstruction technique. FINDINGS: S/p ORIF distal tib fib fracture. There is a lateral fibular bone plate with multiple cortical screws. The plate appears intact with no obvious screw fracture. Status post syndesmotic repair with translucent fixator. The ankle mortise is preserved. There is an old healed fracture involving the lateral aspect of the distal tibia with good alignment. There is a small persistent lucency involving the fracture site distally and anteriorly. The majority of the fracture line however has showed bony healing. There is a medial distal tibial bone plate with good healing of the medial malleolar fracture which is nondisplaced. There is a small persistent lucency at the fracture site also anteriorly at the base of the medial malleolus. The talar dome has an unremarkable appearance. There is a small avulsed fragment along the posterior distal tibia laterally. Along the lateral aspect of the tibial articular surface anteriorly there is a sub cortical cystic area measuring 8 mm. There is also some sclerosis of the tibial articular surface as well. This could be related to a developing geode with osteoarthritic change. No abnormal fluid collections. IMPRESSION: 1. Status post ORIF of the distal tib fib as described above with good alignment and healing fractures. Please see above for detailed description. 2. Subchondral cystic changes of the lateral aspect of the tibial articular surface anteriorly associated with some sclerosis as well possibly related to developing osteoarthritis with geode formation. Dictated by: Raphael Gomez MD 09/09/2021 08:08 Raphael Gomez MD in [place] 09/09/2021 08:08
== END ==
PROVIDERS: PCP Family Medicine; Visit Provider Family Medicine
DX: S82.852S Displaced trimalleolar fracture of left lower leg, sequela (principal)
CPT/HCPCS: 73700

== ENCOUNTER 2021-09-19 10:30 | Emergency (ER) | payer OTHER, SELFPAY ==
[2021-09-19 11:05] VITALS: BP 110/75; PULSE 60; RESP 19; TEMP 36.9; O2SAT 98; BMI 25.4
--- NOTE | 2021-09-19 11:23 | HMH.EDUTC ---
[facility] Disposition Clinical Impression: URI (upper respiratory infection) Qualifiers: URI type: unspecified URI Qualified Code(s): J06.9 - Acute upper respiratory infection, unspecified Disposition: Home, Self-Care Condition on Discharge: Good Instructions: Sore Throat, DI for Sinusitis Additional Instructions: *Monitor Temp, Over the counter Motrin or Tylenol as directed/as needed Tylenol every 4 hours and Motrin every 6 hours (as long as your family doctor has told you that you can take it) for fever or pain. and straight to ER if unable to lower temp less than 101.0 after medication given *Warm salt water gargles may help to soothe the throat *Throat Lozenges *Warm fluids like tea with honey may help to soothe the throat *Sleep elevated *Humidifier/Vaporizer Your throat swab was sent for culture. Those results are typically sent to your primary care. Be sure to follow up in 2-3 days with your family doctor/primary care physician if no improvement so they can review those result and treat if necessary. If you don?t have a primary care doctor, I recommend you get one but in the mean time, you will have to return to a walk in clinic Follow up IMMEDIATELY for new or worsening symptoms or no Noticeable improvement over the next 48-72 hours. 911 for difficulty breathing or swallowing You were tested for today for COVID19 your test result should be back in the next 24-48 hours, you may check your test results on the [facility] [employer] Portal if you have trouble logging on you may call You was given a handout with instructions for Self Quarantine and Self isolation for while you wait on test results and what to do if they are positive If you are positive the Health Dept will be contacting you also Make sure to take your Vitamins Vit. C Vit D and Zinc if you can take them Prescriptions: methylPREDNISolone [Medrol 4mg tab] 4 mg PO DIRECTED #21 tab Transmission Status: Pending to [id number] Azithromycin [Z-Chris 250mg Tab] 250 mg PO DIRECTED #6 tab Transmission Status: P[id number] Referrals: William Suarez MD [Primary Care Provider] - As needed Forms: Work/School Release Time of Disposition: 11:40 Medical Decision Making - Vladislav Inquiry Pt receiving controlled substance: No Vladislav was queried for this patient: No Vital Signs: 09/19/21 11:05 Temperature 98.4 F Temperature Source Oral Pulse Rate [Left Brachial] 60 Respiratory Rate 19 Blood Pressure [Left Arm] 110/75 Blood Pressure Mean [Left Arm] 86 Blood Pressure Source [Left Arm] Automatic Cuff Blood Pressure Position [Left Arm] Sitting 02 Sat by Pulse Oximetry 98 Oxygen Delivery Method Room Air - Lab Data Lab results reviewed: Yes: I reviewed the patient's lab results. Orders (Tests/Meds): ORDERS Category Date Time Status Covid-19 Nasal PCR ([facility]) Routine Lab 09/19/21 11:10 Received Medical Decision Narrative: Patient states that she has taken azithromycin and Medrol in the past without complications or reactions [facility] HPI - General Stated complaint: Sore throat; headache; covid test Time Seen by Provider: 09/19/21 11:23 Mode of Arrival: Ambulatory Source of Information: Patient Limitations: No Limitations Description of Symptoms (Recalled from Triage Doc. by RN): PATIENT C/O HEADACHE AND SORE THROAT. WAS EXPOSED TO DAUGHTER YESTERDAY WHO IS COVID POSITIVE HEENT Symptoms (Recalled from RN notes): Yes Resp Symptoms (Recalled from RN notes): No Skin Symptoms (Recalled from RN notes): No MS Symptoms (Recalled from RN notes): No Functional Status (Recalled from RN notes): WNL - History of Present Illness Provider Complaint: Patient states that she was recently around her daughter that tested positive for COVID yesterday States that she has been having sinus pressure and drainage along with pressure behind her eyes and scratchy throat so she came in to get checked - Related Data Home Medications Me
[2021-09-19 11:42] VITALS: BP 110/75; PULSE 60; RESP 19; TEMP 36.9; O2SAT 98
== END 2021-09-19 11:54 | disposition home or self-care (01) ==
PROVIDERS: Emergency Provider Nurse Practitioner; PCP Family Medicine
DX: J06.9 Acute upper respiratory infection, unspecified (principal); Z20.822 Contact with and (suspected) exposure to COVID-19; K21.9 Gastro-esophageal reflux disease without esophagitis
CPT/HCPCS: 99202; C9803; G0463; U0003; U0005

== ENCOUNTER → 2021-10-08 11:28 | Outpatient (CLI) | payer OTHER, SELFPAY ==
--- NOTE | 2021-10-08 11:36 | XR_ITS ---
PROCEDURE: XR CHEST 2V CLINICAL HISTORY: PRE OPERATIVE COMPARISON: CR XR CHEST PORTABLE from 03/24/2020 FINDINGS: The cardiomediastinal silhouette and pulmonary vascularity are within normal limits. The lungs are clear without infiltrates, suspicious nodules, or pleural effusions. Mild thoracic kyphosis involving the upper thoracic spine with minimal wedge contour of T7 and T6 which may be chronic. IMPRESSION: No acute findings. Dictated by: Raphael Gomez MD 10/08/2021 11:54 Raphael Gomez MD in [place] 10/08/2021 11:54
--- NOTE | 2021-10-08 11:54 | ECG_ITS ---
APPROVED REPORT Exam: Resting ECG HR:63 bpm ECG Measurements Heart Rate 63 AXES OK 130 P 55 QRSd 102 QRS 69 QT 386 T 37 QTc 395 Conclusion Normal sinus rhythm Incomplete RBBB with PRWP... unchanged from prior Abnormal ECG Electronically signed by : Prashanth Victoria MD 10/08/2021 20:32:06
[2021-10-08 12:00] LABS: Basophils # 0.1 K/mm3 (0-0.2); Basophils % 0.9 % (0.1-2.0); Eosinophils % 0.7 % (0.1-12.0); Hematocrit 39.1 % (37.0-47.0); Lymphocytes # 1.6 K/mm3 (0.7-4.5); Lymphocytes % 25.8 % (10-50); Mean Corpuscular HGB Conc 33.2 g/dL (31.8-35.4); Mean Corpuscular Hemoglobin 30.8 pg (27.0-31.2); Mean Corpuscular Volume 92.7 fl (81-99); Mean Platelet Volume 8.1 fl (7.4-10.4); Monocytes # 0.4 K/mm3 (0.1-1.0); Monocytes % 6.5 % (1.7-9.3); Neutrophils % 66.1 % (37.0-80.0); Platelet Count 362 K/mm3 (142-424); Red Blood Count 4.22 M/mm3 (4.20-5.40); White Blood Count 6.1 K/mm3 (4.8-10.8)
[2021-10-08 12:28] LABS: Chloride 101 mmol/L (98-107); Potassium 4.2 mmoL/L (3.5-5.1); Sodium 139 mmol/L (136-145)
[2021-10-08 12:30] LABS: Blood Urea Nitrogen 11 mg/dl (7-17); Estimated Glomerular Filt Rate 89 ml/min (>60); GFR (African American) 108 ML/MIN (>60)
[2021-10-08 12:31] LABS: Alanine Aminotransferase 9 U/L (12-78); Albumin Level 4.7 g/dl (3.5-5.0); Alkaline Phosphatase 65 U/L (38-126); Anion Gap 14.2 mEq/L (5-15); Aspartate Amino Transferase 20 U/L (14-36); Bilirubin,Total 0.7 mg/dl (0.2-1.3); Calcium 9.8 mg/dl (8.4-10.2); Carbon Dioxide 28 mmol/L (22.0-30.0); Globulin 2.4 g/dL (1.3-3.2); Glucose 96 mg/dl (74-100); Total Protein,Serum 7.1 g/dl (6.3-8.2)
== END ==
PROVIDERS: Visit Provider Podiatrist
DX: Z01.818 Encounter for other preprocedural examination (principal); M25.572 Pain in left ankle and joints of left foot
CPT/HCPCS: 36415; 71046; 80053; 85025; 93005

== ENCOUNTER → 2021-10-12 08:02 | Outpatient (CLI) | payer OTHER, SELFPAY | PROVIDERS: Visit Provider Podiatrist | DX: Z01.812 Encounter for preprocedural laboratory examination (principal); Z11.52 Encounter for screening for COVID-19; M25.572 Pain in left ankle and joints of left foot | CPT/HCPCS: C9803; U0003; U0005 ==

== ENCOUNTER 2021-10-14 11:55 | Day surgery (SDC) | payer OTHER, SELFPAY ==
[2021-10-11 09:56] VITALS: BMI 25.4
[2021-10-13 10:57] LABS: HCG Qualitative, Serum Negative (Negative)
[2021-10-14] VITALS (9 sets, daily range): BP systolic 106–118; BP diastolic 53–92; PULSE 64–90; RESP 12–18; TEMP 36.4–43; O2SAT 90–100
--- NOTE | 2021-10-14 | XR_ITS ---
PROCEDURE: XR ANKLE LT 2V CLINICAL INDICATION: HARDWARE REMOVED ARIELA COMPARISON: CT CT ANKLE LT WO CON from 09/08/2021 CR XR ANKLE LT MIN 3V from 10/14/2021 FINDINGS: Fluoroscopy time: 0.8 seconds. Single AP view submitted demonstrates lateral fibular bone plate and medial tibial screw as well as syndesmotic repair. Previously noted bone plate at the medial distal tibia was removed. IMPRESSION: Good alignment in the AP plane status post hardware removal with fluoroscopic assistance Dictated by: Raphael Gomez MD 10/15/2021 08:39 Raphael Gomez MD in [place] 10/15/2021 08:39
--- NOTE | 2021-10-14 14:04 | HMH.ANESCL ---
[facility] Anesthesia Checklist - Structural Data Admitted From: Home Planned Operative Procedure/s: removal hrdwr l ankle Consent for Planned Operative Procedure(s) Verified: Yes - Additional verifications Anesthesia Reactions: No Hx Blood Transfusions: No Blood Transfusion Reaction: No - Airway Assessment C-Spine Mobility Assessed: Yes TMJ Mobility Assessed: Yes Dentition: Good Dentition - Neurological Assessment Level of Consciousness: Awake, Alert, Appropriate - Anesthesia Plan Anesthesia Risk discussed: Yes Anesthesia Plan: Verified ASA Class: II Anesthesia Type: General w/block - Preoperative Comments Pre-Operative Comments: pop block exp to pt incl risks/benefits. pt agrees to proceed [facility] History I have reviewed the patient's past medical history: Yes Medical History: Reports:: Gastroesophageal Reflux Disease(GERD) Denies:: Cancer, Diabetes Mellitus Type 1, Diabetes Mellitus Type 2, Hypertension, Internal Pacemaker, Lung Disease, Migraine, MRSA, Seizures *Have you ever received a pneumonia vaccine?: Yes (2012) *Have you received a flu vaccine this season?: No Other Medical History: Reports: Anemia, Sinus Problems. Denies: Blood Transfusion Reaction, Hypothyroidism Anesthesia experience/problems:: none Other Surgeries: Yes: No Previous Surgery, Other (Cystoscopy; urethral dilatation about every 5 to 6 years). No: Pacemaker Amputation: No - *Social History Last grade of school completed: Advanced degree Smoking Status: Never smoker Alcohol Intake: never Substance Use Type: other *Occupational Status:: other Housing: house Household Members: spouse, children *Travel in the last 8 weeks: None Family Hx:: Cancer, Coronary Artery Disease, Heart Attack, Hypertension
--- NOTE | 2021-10-14 14:31 | HMH.ANESCL ---
[facility] Anesthesia Checklist - Patient Identification Patient Identification: Arm Band, Verbal (Name & ) - Structural Data Admitted From: Home Planned Operative Procedure/s: Removal of left ankle hardware Consent for Planned Operative Procedure(s) Verified: Yes Verified Documents: Surgical Consent - NPO Status Verified Time NPO: 00:00 - Chart Verification Results Verified: CBC, ECG, HCG - Additional verifications Anesthesia Reactions: No Hx Blood Transfusions: No Blood Transfusion Reaction: No - Cardiovascular Assessment Heart Sounds: S1 & S2 Pulse Rhythm: Regular - Airway Assessment C-Spine Mobility Assessed: Yes TMJ Mobility Assessed: Yes - Neurological Assessment Level of Consciousness: Awake, Alert, Appropriate - Anesthesia Plan Anesthesia Risk discussed: Yes ASA Class: II Anesthesia Type: General w/block [facility] History I have reviewed the patient's past medical history: Yes Medical History: Reports:: Gastroesophageal Reflux Disease(GERD) Denies:: Cancer, Diabetes Mellitus Type 1, Diabetes Mellitus Type 2, Hypertension, Internal Pacemaker, Lung Disease, Migraine, MRSA, Seizures *Have you ever received a pneumonia vaccine?: Yes (2012) *Have you received a flu vaccine this season?: No Other Medical History: Reports: Anemia, Sinus Problems. Denies: Blood Transfusion Reaction, Hypothyroidism Anesthesia experience/problems:: none Other Surgeries: Yes: No Previous Surgery, Other (Cystoscopy; urethral dilatation about every 5 to 6 years). No: Pacemaker Amputation: No - *Social History Last grade of school completed: Advanced degree Smoking Status: Never smoker Alcohol Intake: never Substance Use Type: other *Occupational Status:: other Housing: house Household Members: spouse, children *Travel in the last 8 weeks: None Family Hx:: Cancer, Coronary Artery Disease, Heart Attack, Hypertension
--- NOTE | 2021-10-14 14:33 | HMH.ANESI ---
[facility] Anesthesia Record Part I Intake, IV Amount: 1,300 Estimated blood loss (mL): 20 Urine output (mL): 0 Blood Products used (#): none Blood Pressure: 106/61 SaO2: 99 Pulse Rate: 84 Respiratory Rate: 14 Temperature: 97.6 F Patient is:: Drowsy Stable to PACU at:: 14:55
--- NOTE | 2021-10-14 15:00 | XR_ITS ---
PROCEDURE: XR ANKLE LT MIN 3V CLINICAL INDICATION: Left ankle hardware removal COMPARISON: CR XR ANKLE WT BEARING LT MIN 3V from 09/03/2020 CR XR ANKLE WT BEARING LT MIN 3V from 10/19/2020 CR XR ANKLE WT BEARING LT MIN 3V from 01/18/2021 CR XR ANKLE WT BEARING LT MIN 3V from 05/04/2021 FINDINGS: Status post ORIF distal tibia and fibula with lateral fibular bone plate, syndesmotic repair, and longitudinal screw within the medial malleolus. There is good alignment. The medial bone plate has been removed. There is small amount soft tissue gas along medial aspect of the ankle. The joint spaces are well-preserved. No significant degenerative/arthritic changes. No erosive changes evident. Other findings:None. IMPRESSION: Good alignment status post hardware removal Dictated by: Raphael Gomez MD 10/14/2021 15:54 Raphael Gomez MD in [place] 10/14/2021 15:54
--- NOTE | 2021-10-14 15:01 | HMH.OPNOTE ---
Date of procedure: 10/14/21 Pre-op Diagnosis:: 1. Left ankle painful orthopaedic hardware 2. Retained orthopedic hardware 3. History of fracture of left ankle with ORIF 4. Synovitis of left ankle 5. Left nerve entrapment Post-op Diagnosis:: Same Procedure performed:: 1. Left ankle hardware removal 2. Left ankle synovectomy 3. Left ankle nerve decompression 4. Application of graft Surgeon:: Negra Shukla DPM ASSISTANT PROFESSOR OF DRAMA:: Other (Ji Campos) Anesthesia: GETA, regional (left popliteal nerve block) Estimated blood loss (mL): 20 Clinical Note:: Patient is a 46-year-old female who suffered a left ankle fracture on 03/23/20. She had surgical ORIF. Conservative treatment exhausted. She is ambulating, working and back to fitness without issues except palpable plate. We discussed surgery for hardware removal. Palpable hardware medially. Discussed cleaning out scar tissue and leaving lateral plate. I explained if there is any instable or evidence intra-op of medial fracture, will re-fixate. All risks and benefits were discussed including but not limited to: damage to blood vessels and nerves, bleeding, infection, wound complications, delayed, mal or non-union of bone, post-traumatic arthritis, need for further surgery, implant failure, need for removal of implant, prolonged or permanent swelling of the extremity, prolonged or permanent pain or deformity, CRPS/RSD, DVT/PE, and anesthetic complications including . No guarantees were given. All questions fully answered. The patient verbalized understanding and agreed to proceed with surgery. Consent was obtained. Medical clearance granted. Necessary labs and pre-op testing ordered: CBC, BMP, EKG, covid. Patient has fx boot, crutches and walker. Will need pain meds post op. Patient wants to be able to RTW on 11/01/21. Operative findings:: Ankle range of motion within normal limits without crepitus. Retained distal fibula plate and screws not removed. Retained medial malleolus plate and screws. Medial malice plate and screws removed. The medial fracture healed. Some scarring and fibrotic tissue from the subcutaneous tissue full-thickness to the plate. Nerve was entrapped in scar tissue. Some synovitis noted toward the medial ankle. Decision was made to leave remaining medial malleolus cannulated screw and syndesmotic fixation intact, as the deltoid ligament was intact and would need to be dissected in order to remove the medial cannulated screw. Due to the patient's lack of subcutaneous tissue and the degree of fibrosis and adhesion from just under the skin to the plate, decision was made to use amniotic graft who prevent recurrent nerve entrapment, prevent scarring and tissue adhesions. Operative note:: On this date and time patient was deemed an appropriate surgical candidate. With informed consent signed, the patient was taken to the operating theater, after anesthesia gave preop regional popliteal nerve block. Patient was positioned supine. General anesthesia induced. IV Ancef 2g given. Tourniquet applied to left mid-calf. Left ankle hardware removal: The left lower extremity was prepped and drapped in normal sterile fashion. The tourniquet was not inflated. Attention was directed to the medial malleolus, where a dorsal linear incision was mapped out over the previous well healed surgical scar. Dissection was carried thru skin and sub q tissue, with care to maintain surgical hemostasis. It should be noted that there was significant fibrosis and adhesion of the tissue from the subcutaneous layer full-thickness to the plate. Dissection was carried down and hardware was visualized. The Kickit With locking 3.5 mm screws x3 and medial malleolus anatomic locking plate were removed. No signs of infection noted. Left ankle synovectomy: The soft tissue appeared healthy but synovitic with scarring and fibrosis noted. There was no arauz or necrotic tissue noted. There was no purulence or malodor appreciated. No periwound
--- NOTE | 2021-10-14 15:11 | SUR.OPER ---
1400- family updated of pt current status via refugio carmen in preop 1445- family updated of pt current status via refugio hope in preop
[2021-11-18 08:18] VITALS: BP 106/61; PULSE 84; RESP 14; TEMP 36.4; O2SAT 99
== END 2021-10-14 16:00 | disposition home or self-care (01) ==
LOC: OR 11:56
PROVIDERS: PCP Family Medicine; Visit Provider Podiatrist
PROC: (CPT 15275; principal; 2021-10-14 13:30)
DX: T84.84XA Pain due to internal orthopedic prosthetic devices, implants and grafts, initial encounter (principal); M25.572 Pain in left ankle and joints of left foot; G89.29 Other chronic pain; S82.452D Displaced comminuted fracture of shaft of left fibula, subsequent encounter for closed fracture with routine healing; Z79.899 Other long term (current) drug therapy; Y83.1 Surgical operation with implant of artificial internal device as the cause of abnormal reaction of the patient, or of later complication, without mention of misadventure at the time of the procedure; Y82.8 Other medical devices associated with adverse incidents; G58.8 Other specified mononeuropathies
CPT/HCPCS: 15275; 20680; 64704; 27625; 73600; 73610; 76000; 84703; 88305; 96374; J2405; Q4211

== ENCOUNTER → 2021-11-10 17:23 | Outpatient (CLI) | payer OTHER, SELFPAY | PROVIDERS: PCP Family Medicine; Visit Provider Nurse Practitioner | DX: U07.1 COVID-19 (principal) | CPT/HCPCS: C9803; U0003; U0005 ==

== ENCOUNTER → 2022-12-06 14:04 | Outpatient (CLI) | payer OTHER, SELFPAY ==
--- NOTE | 2022-12-06 14:08 | XR_ITS ---
FINAL REPORT CLINICAL HISTORY: post-op, weightbearing views for Dr Shukla. COMPARISON: 10/14/2021 FINDINGS: Left ankle Three views were obtained. There is no acute fracture or dislocation. Again identified are postoperative changes in the distal tibia/fibula. Screw plate and multiple screws are present. There are mild degenerative changes. No soft tissue abnormality is identified. IMPRESSION: Postsurgical changes without evidence of complication. Reviewed, Interpreted and Dictated by Sincere Bui III, MD Transcribed by Adwoa Koch Authenticated and [facility]
== END ==
PROVIDERS: PCP Family Medicine; Visit Provider Podiatrist
DX: M25.572 Pain in left ankle and joints of left foot (principal); S82.892A Other fracture of left lower leg, initial encounter for closed fracture; S99.912A Unspecified injury of left ankle, initial encounter
CPT/HCPCS: 73610

== ENCOUNTER 2023-03-29 12:15 | Emergency (ER) | payer OTHER, SELFPAY ==
--- NOTE | 2023-03-29 12:32 | EXP.UTC ---
Discharge Plan Disposition Patient Disposition: Home, Self-Care Condition: Good Prescriptions Prescriptions: New levofloxacin [levofloxacin] 500 mg tablet 500 mg PO DAILY Qty: 5 0RF No Action fluticasone propionate 50 mcg/actuation spray,suspension 1 spray INTRANASAL DAILY omeprazole 20 mg capsule,delayed release(DR/EC) 20 mg PO DAILY Label Comments: TAKE 1 CAPSULE BY MOUTH ONCE DAILY fluconazole 150 mg tablet 150 mg PO amitriptyline 10 MG tablet 10 mg PO DAILY escitalopram oxalate 10 MG tablet 10 mg PO DAILY nitrofurantoin macrocrystal 50 MG capsule 50 mg PO DAILY ibuprofen 800 MG tablet 800 mg PO DAILY Referrals Follow up/Referrals: Missy Arteaga [Primary Care Provider] - See instructions Activity Restrictions/Add. Instructions Additional Instructions/Restrictions: Drink plenty of fluids. Take tylenol or ibuprofen for pain or fever. Take the medications as directed. Follow up with your regular doctor. GO TO THE ER FOR ANY WORSENING SYMPTOMS Clinical Impressions Clinical Impression: UTI (urinary tract infection) Instructions Patient Instructions: Urinary Tract Infection Discharge ED Provider: William Montoya [facility] General Stated complaint: Possible UTI Time Seen by Provider: 03/29/23 12:32 History of Present Illness Provider Complaint: She states that she has had dysuria, low back pain, and urinary frequency for the past 3 days. Related Data Home Medications Medication Instructions Recorded Confirmed fluticasone propionate 50 1 spray intranasal DAILY Allergy 07/02/20 12/06/22 mcg/actuation nasal symptoms spray,suspension omeprazole 20 mg capsule,delayed 20 mg PO DAILY GERD 07/02/20 12/06/22 release ibuprofen 800 mg tablet 800 mg PO DAILY Arthritis 09/19/21 12/06/22 nitrofurantoin macrocrystal 50 mg 50 mg PO DAILY . 09/19/21 12/06/22 capsule amitriptyline 10 mg tablet 10 mg PO DAILY Anxiety 10/11/21 12/06/22 escitalopram oxalate 10 mg tablet 10 mg PO DAILY Depression 10/11/21 12/06/22 fluconazole 150 mg tablet 150 mg PO 12/06/22 12/06/22 Previous Rx's Medication Instructions Recorded levofloxacin 500 mg tablet 500 mg PO DAILY #5 tabs 03/29/23 Allergies Allergy/AdvReac Type Severity Reaction Status Date / Time hydromorphone [From Dilaudid] Allergy Nausea Verified 03/29/23 12:43 Sulfa (Sulfonamide Allergy Verified 03/29/23 12:43 Antibiotics) morphine AdvReac Nausea Verified 03/29/23 12:43 PFS PFS Disclaimer: The information contained in this section may have been updated after the patient was seen, as this information can be updated by other users. Social History Smoking Status: Never smoker alcohol intake: never substance use type: other current occupational status: other Travel in the last 8 weeks: None household members: spouse and children housing: house current occupation: [employer] current occupational exposures/hazards: No caffeine: Yes ROS Obtained: Yes All systems reviewed & no additional complaints except as documented Constitutional Constitutional: Reports system reviewed and no additional complaints, except as documented, Denies chills and Denies fever(s) Eyes Eyes: Denies eye discharge ENT Ears, Nose, Mouth, and Throat: Denies dysphagia, Denies sore throat and Denies throat swelling Cardiovascular Cardiovascular: Denies chest pain and Denies dyspnea Respiratory Respiratory: Denies chest congestion, Denies cough and Denies dyspnea Gastrointestinal Gastrointestingal: Denies abdominal pain, constipation, diarrhea, dysphagia, nausea or vomiting Genitourinary Female Genitourinary: Reports as per HPI, Reports dysuria, Reports urinary frequency, Denies urinary incontinence, Reports urinary hesitancy and Reports urinary urgency Musculoskeletal Musculoskeletal: Denies arthralgias and Reports back pain I
[2023-03-29 12:39] VITALS: BP 136/72; PULSE 65; RESP 18; TEMP 36.8; O2SAT 100; BMI 26.6
[2023-03-29 12:52] LABS: Apearance,Urine Clear (Clear); Color,Urine Yellow (Yellow); PH,Urine 7.5 (5.0-8.5); Specific Gravity, Urine 1.025 (1.005-1.030)
[2023-03-29 12:53] LABS: Bilirubin,Urine Negative (Negative); Blood, Urine Negative (Negative); Glucose,Urine (UA) Negative (Negative); Ketones,Urine Negative (Negative); Protein,Urine Negative (Negative); UTC Leukocyte Esterase,Urine Negative (Negative); UTC Nitrate,Urine Negative (Negative); Urobilinogen,Urine 0.2 EU/dl (0.2)
[2023-03-29 12:59] VITALS: BP 136/72; PULSE 65; RESP 18; TEMP 36.8
== END 2023-03-29 13:02 | disposition home or self-care (01) ==
PROVIDERS: Emergency Provider Nurse Practitioner Family; PCP Family Medicine
DX: N39.0 Urinary tract infection, site not specified (principal); M54.59 Other low back pain
CPT/HCPCS: 81003; 99212; 99214; G0463

== ENCOUNTER 2023-06-14 15:24 | Emergency (ER) | payer OTHER, SELFPAY ==
[2023-06-14 15:24] VITALS: BP 128/79; PULSE 63; RESP 16; TEMP 36.7; O2SAT 99; BMI 28.3
--- NOTE | 2023-06-14 15:49 | EXP.UTC ---
Discharge Plan Disposition Patient Disposition: Home, Self-Care Condition: Good Prescriptions Prescriptions: New phenazopyridine [Pyridium] 200 mg tablet 200 mg PO Q8H 2 Days Qty: 6 0RF levofloxacin 250 mg tablet 250 mg PO DAILY 5 Days Qty: 5 0RF No Action fluticasone propionate 50 mcg/actuation spray,suspension 1 spray INTRANASAL DAILY omeprazole 20 mg capsule,delayed release(DR/EC) 20 mg PO DAILY Patient Comments: TAKE 1 CAPSULE BY MOUTH ONCE DAILY fluconazole 150 mg tablet 150 mg PO levofloxacin [levofloxacin] 500 mg tablet 500 mg PO DAILY Qty: 5 0RF amitriptyline 10 MG tablet 10 mg PO DAILY escitalopram oxalate 10 MG tablet 10 mg PO DAILY nitrofurantoin macrocrystal 50 MG capsule 50 mg PO DAILY ibuprofen 800 MG tablet 800 mg PO DAILY Referrals Follow up/Referrals: Msisy Arteaga [Primary Care Provider] - See instructions Activity Restrictions/Add. Instructions Additional Instructions/Restrictions: Drink plenty of fluids. Take tylenol or ibuprofen for pain or fever. Take the medications as directed. Follow up with your regular doctor. GO TO THE ER FOR ANY WORSENING SYMPTOMS The pyridium will make your urine turn orange, this is an expected side effect. It will stain your clothes if it comes into contact with them. Clinical Impressions Clinical Impression: UTI (urinary tract infection) Instructions Patient Instructions: Urinary Tract Infection, DI for Urinary Tract Infection (UTI), Phenazopyridine Discharge ED Provider: William Montoya [facility] HPI General Stated complaint: poss uti Mode of Arrival: Ambulatory Source of Information: Patient Limitations: No Limitations Time Seen by Provider: 06/14/23 15:49 Description of Symptoms (Recalled from Triage Doc. by RN): Patient reports possible uti. HEENT Symptoms (Recalled from RN notes): No Resp Symptoms (Recalled from RN notes): No Skin Symptoms (Recalled from RN notes): No MS Symptoms (Recalled from RN notes): No Functional Status (Recalled from RN notes): wnl History of Present Illness Provider Complaint: She states that she has had dysuria and urinary frequency for the past 4 days. 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 Results show moderate amount of blood and positive nitrites. Related Data Home Medications Medication Instructions Recorded Confirmed fluticasone propionate 50 1 spray intranasal DAILY Allergy 07/02/20 12/06/22 mcg/actuation nasal symptoms spray,suspension omeprazole 20 mg capsule,delayed 20 mg PO DAILY GERD 07/02/20 12/06/22 release ibuprofen 800 mg tablet 800 mg PO DAILY Arthritis 09/19/21 12/06/22 nitrofurantoin macrocrystal 50 mg 50 mg PO DAILY . 09/19/21 12/06/22 capsule amitriptyline 10 mg tablet 10 mg PO DAILY Anxiety 10/11/21 12/06/22 escitalopram oxalate 10 mg tablet 10 mg PO DAILY Depression 10/11/21 12/06/22 fluconazole 150 mg tablet 150 mg PO 12/06/22 12/06/22 Previous Rx's Medication Instructions Recorded levofloxacin 500 mg tablet 500 mg PO DAILY #5 tabs 03/29/23 levofloxacin 250 mg tablet 250 mg PO DAILY 5 days #5 tabs 06/14/23 phenazopyridine 200 mg tablet 200 mg PO Q8H 2 days #6 tabs 06/14/23 (Pyridium) Allergies Allergy/AdvReac Type Severity Reaction Status Date / Time hydromorphone [From Dilaudid] Allergy Nausea Verified 03/29/23 12:43 Sulfa (Sulfonamide Allergy Verified 03/29/23 12:43 Antibiotics) morphine AdvReac Nausea Verified 03/29/23 12:43 Worker's Comp Is this a Worker's Comp case?: No [facility] Disclaimer: The information contained in this section may have been updated after the patient was seen, as this information can be updated by other users. Social History Smoking Status: Never smoker alcohol intake: never substance use type: other current occupational status: other Travel in the last 8
[2023-06-14 16:02] VITALS: BP 128/79; PULSE 63; RESP 16; TEMP 36.7; O2SAT 99
== END 2023-06-14 16:03 | disposition home or self-care (01) ==
PROVIDERS: Emergency Provider Nurse Practitioner Family; PCP Family Medicine
DX: N39.0 Urinary tract infection, site not specified (principal)
CPT/HCPCS: 99212; 99214; G0463